=== PATIENT | male | born 1935 | race African-American/Black ===

== ENCOUNTER 2017-05-15 10:05 | Inpatient (IN) | payer OTHER ==
--- NOTE | 2017-05-15 10:44 | PDOC ---
History of Present Illness <Rabia Mishra - Last Filed: 05/15/17 12:13> - General History Source: Patient Exam Limitations: No Limitations - History of Present Illness Initial Comments: 05/15/17 12:00 The patient is a 82 year old male with significant PMH of dementia, not currently seeing a PCP but is on paroxetine and lisinopril who presents to the emergency department with bilateral leg swelling that began approximately 3-4 weeks ago and shortness of breath. The patient describes the bilateral leg swelling as progressively worsening, now making it difficult for him to ambulate. The patient states he is ambulating with a cane. The patient denies dyspnea on exertion and orthopnea. The patient denies any cardiac history, CAD, or CHF but it is unclear if he has had any cardiac evaluation as he is not currently being seen by a PCP. Of note, the patient is also expressing paranoia about living [facility] his [facility] facility. The patient denies chest pain, dyspnea, orthopnea, headache and dizziness. Denies fever, chills, nausea, vomit, diarrhea and constipation. Denies dysuria, frequency, urgency and hematuria. Allergies: NKA Past surgical history: None reported. Social history: No reported alcohol, drug or cigarette drug use. <Amelia Vo - Last Filed: 05/15/17 12:16> - General Chief Complaint: Edema Stated Complaint: BOTH LEG PAIN Time Seen by Provider: 05/15/17 10:44 Past History - Past Medical History COPD: No Dementia: Yes (? dementia) HTN: Yes Hypercholesterolemia: Yes - Surgical History Abdominal Surgery: Yes (colon resection) - Suicide/Smoking/Psychosocial Hx Smoking History: Never smoked Have you smoked in the past 12 months: No Information on smoking cessation initiated: No Hx Alcohol Use: No Drug/Substance Use Hx: No Substance Use Type: None <Rabia Mishra - Last Filed: 05/15/17 12:13> <Amelia Vo - Last Filed: 05/15/17 12:16> - Past Medical History Allergies/Adverse Reactions: Allergies Allergy/AdvReac Type Severity Reaction Status Date / Time No Known Allergies Allergy Verified 05/15/17 10:12 Home Medications: Ambulatory Orders Lisinopril [Prinivil -] 40 mg PO DAILY 02/26/18 Paroxetine HCl [Paxil] 20 mg PO DAILY 05/15/17 Review of Systems - Review of Systems Able to Perform ROS?: Yes Comments:: 05/15/17 12:00 GENERAL/CONSTITUTIONAL: No fever or chills. No weakness. HEAD, EYES, EARS, NOSE AND THROAT: No change in vision. No ear pain or discharge. No sore throat. CARDIOVASCULAR: No chest pain or shortness of breath. RESPIRATORY: (+) SOB. No cough, wheezing, or hemoptysis. GASTROINTESTINAL: No nausea, vomiting, diarrhea or constipation. GENITOURINARY: No dysuria, frequency, or change in urination. MUSCULOSKELETAL: (+) Bilateral leg swelling. No joint or muscle pain. No neck or back pain. SKIN: No rash NEUROLOGIC: No headache, vertigo, loss of consciousness, or change in strength/ sensation. ENDOCRINE: No increased thirst. No abnormal weight change. HEMATOLOGIC/LYMPHATIC: No anemia, easy bleeding, or history of blood clots. ALLERGIC/IMMUNOLOGIC: No hives or skin allergy. <Amelia Vo - Last Filed: 05/15/17 12:16> *Physical Exam - Vital Signs Last Vital Signs Temp Pulse Resp BP Pulse Ox 98.0 F 86 20 176/116 96 05/15/17 10:16 05/15/17 10:16 05/15/17 10:16 05/15/17 10:16 05/15/17 10:31 <Rabia Mishra - Last Filed: 05/15/17 12:13> - Vital Signs Last Vital Signs Temp Pulse Resp BP Pulse Ox 98.0 F 86 20 176/116 96 05/15/17 10:16 05/15/17 10:16 05/15/17 10:16 05/15/17 10:16 05/15/17 10:31 - Physical Exam Comments: 05/15/17 11:59 GENERAL: Awake, alert, and fully oriented, in no acute distress HEAD: No signs of trauma EYES: PERRLA, EOMI, sclera anicteric, conjunctiva clear ENT: Auricles normal inspection, hearing grossly normal, nares patent, oropharynx clear without exudates. Moist mucosa NECK: Normal ROM, supple, no lymphadenopathy, JVD, or masses LUNGS: (+) Tachypnea but in no acute distress. Breath sounds equal, clear to auscultation bilaterally. No wheezes, and no crackles HEART: Regular rate and rhythm, normal S1 and S2, no murmurs, rubs or gallops ABDOMEN: Soft, nontender, normoactive bowel sounds. No guarding, no rebound. No masses EXTREMITIES: (+) 3+ pitting edema to the knees bilaterally. Normal range of motion. No clubbing or cyanosis. No cords, erythema, or tenderness NEUROLOGICAL: Cranial nerves II through XII grossly intact. Normal speech, normal gait SKIN: Warm, Dry, normal turgor, no rashes or lesions noted. To the knee bilat. <Amelia Vo - Last Filed: 05/15/17 12:16> ED Treatment Course - LABORATORY CBC & Chemistry Diagram: 05/15/17 10:55 05/15/17 10:55 - RADIOLOGY Radiology Studies Ordered: Category Date Time Status CHEST PA & LAT [RAD] Stat Radiology 05/15/17 10:24 Ordered <Rabia Mishra - Last Filed: 05/15/17 12:13> - LABORATORY CBC & Chemistry Diagram: 05/15/17 10:55 05/15/17 10:55 - ADDITIONAL ORDERS Additional order review: Laboratory Results 05/15/17 05/15/17 10:55 10:55 Sodium 143 Potassium 3.8 Chloride 109 H Carbon Dioxide 24 Anion Gap 10 BUN 15 Creatinine 1.1 Creat Clearance w eGFR > 60 Random Glucose 98 Calcium 9.8 Total Bilirubin 1.1 H AST 36 ALT 56 Alkaline Phosphatase 68 Creatine Kinase 116 Troponin I 0.13 H B-Natriuretic Peptide 8287.44 H Total Protein 7.4 Albumin 3.9 Urine Color Straw Urine Appearance Clear Urine pH 7.0 Ur Specific [place] 1.010 Urine Protein 1+ H Urine Glucose (UA) Negative Urine Ketones Negative Urine Blood 1+ H Urine Nitrite Negative Urine Bilirubin Negative Urine Urobilinogen Negative Ur Leukocyte Esterase Negative Urine WBC (Auto) None Urine RBC (Auto) <1 Ur Epithelial Cells Rare Urine Mucus Rare 05/15/17 10:55 RBC 4.99 MCV 89.2 MCHC 31.9 L RDW 15.6 MPV 10.3 Neutrophils % 83.0 H Lymphocytes % 10.5 Monocytes % 5.8 Eosinophils % 0.3 Basophils % 0.4 - Medications Given in the ED: ED Medications Discontinued Medications Generic Name Dose Route Start Last Admin Trade Name Yee PRN Reason Stop Dose Admin Aspirin 162 mg 05/15/17 11:42 05/15/17 11:51 Asa - PO 05/15/17 11:43 162 mg ONCE ONE Administration Furosemide 40 mg 05/15/17 11:42 05/15/17 11:51 Lasix Injection - IVPUSH 05/15/17 11:43 40 mg ONCE ONE Administration <Amelia Vo - Last Filed: 05/15/17 12:16> Medical Decision Making - Medical Decision Making 05/15/17 11:51 Pt presents to the ED complaining of a three week history of progressively worsening leg swelling and shortness of breath. Denies chest pain, orthopnea or PND. Patient has no primary care physician, and so has not been recieving reliable medical follow up. Denies history of CHF or CAD, but it is unclear when his last cardiac evaluation was. Labs show mildly elevated troponin and extremely elevated BNP, consistent with CHF. EKG shows no ischemia. Will admit the patient for management of new onset CHF. Will treat with lasix and give ASA. <Rabia Mishra - Last Filed: 05/15/17 12:13> *DC/Admit/Observation/Transfer - Discharge Dispostion Admit: Yes <Rabia Mishra - Last Filed: 05/15/17 12:13> - Attestations Scribe Attestion: 05/15/17 11:59 Documentation prepared by Amelia Vo, acting as medical instrument cable fabricator for Rabia Mishra MD. <Amelia Vo - Last Filed: 05/15/17 12:16> Diagnosis at time of Disposition: CHF (congestive heart failure) Qualifiers: Heart failure type: unspecified Heart failure chronicity: acute Qualified Code( s): I50.9 - Heart failure, unspecified
[2017-05-15 11:08] LABS: BASO % 0.4 % (0-2.0); EOS % 0.3 % (0-4.5); HEMATOCRIT 44.5 % (35.4-49); HEMOGLOBIN 14.2 GM/dL (11.7-16.9); LYMPH % 10.5 % (8-40); MCH 28.4 pg (25.7-33.7); MCHC 31.9 g/dl (32.0-35.9); MEAN CELL VOLUME 89.2 fl (80-96); MEAN PLT VOLUME 10.3 fl (7.5-11.1); MONO % 5.8 % (3.8-10.2); PLATELET COUNT 225 K/MM3 (134-434); RBC 4.99 M/mm3 (4.00-5.60); RDW 15.6 % (11.9-15.9); URINE APPEARANCE CLEAR; URINE BILIRUBIN NEGATIVE (NEGATIVE); URINE BLOOD 1+ (NEGATIVE); URINE COLOR STRAW; URINE GLUCOSE (UA) NEGATIVE (NEGATIVE); URINE KETONE NEGATIVE (NEGATIVE); URINE LEUK ESTERASE NEGATIVE (NEGATIVE); URINE NITRITE NEGATIVE (NEGATIVE); URINE UROBILINOGEN NEGATIVE mg/dL (0.2-1.0)
[2017-05-15 11:31] LABS: ALBUMIN 3.9 g/dl (3.4-5.0); ANION GAP 10 (8-16); BILIRUBIN,TOTAL 1.1 mg/dL (0.2-1.0); BLOOD UREA NITROGEN 15 mg/dL (7-18); CALCIUM 9.8 mg/dL (8.5-10.1); CHLORIDE 109 mmol/L (98-107); CO2 24 mmol/L (21-32); CREATININE 1.1 mg/dL (0.7-1.3); GLUCOSE,RANDOM 98 mg/dL (74-106); POTASSIUM 3.8 mmol/L (3.5-5.1); SGOT/AST 36 U/L (15-37); SGPT/ALT 56 U/L (12-78); SODIUM 143 mmol/L (136-145); TOT PROT 7.4 g/dl (6.4-8.2)
[2017-05-15 11:33] LABS: ALK PHOS 68 U/L (45-117)
[2017-05-15 11:34] LABS: N-TERMINAL BNP 8287.44 pg/ml (5-450)
[2017-05-15 11:42] LABS: URINE PROTEIN 1+ (NEGATIVE)
[2017-05-15] MEDS ORDERED: ASPIRIN 81 MG CHEWABLE TABLETS PO ONE (11:42)
[2017-05-15] MEDS ORDERED: FUROSEMIDE 40 MG/4 ML INJECTABLE VIAL IVPUSH ONE (11:42)
[2017-05-15] MEDS ORDERED: ASPIRIN 81 MG CHEWABLE TABLETS ONE (11:45)
[2017-05-15] MEDS ORDERED: FUROSEMIDE 40 MG/4 ML INJECTABLE VIAL ONE ×2 (11:45→12:58)
[2017-05-15 11:47] LABS: EPI CELLS RARE /HPF (FEW); URINE MUCUS RARE
--- NOTE | 2017-05-15 12:14 | CON.CARD ---
Consult Consult Specialty:: Cardiology Referred by:: Emergency Dept. Reason for Consultation:: CHF - History of Present Illness Chief Complaint: Dyspnea and LE edema History of Present Illness: The patient is a 82 year old male with significant PMH of dementia, HTN/HCVD not currently seeing a PCP but is on paroxetine and lisinopril who presents to the emergency department with progressive bilateral leg swelling that began approximately 3-4 weeks ago and shortness of breath. The patient describes the bilateral leg swelling as progressively worsening, now making it difficult for him to ambulate. The patient denies dyspnea on exertion and orthopnea. The patient denies any cardiac history, CAD, or CHF but it is unclear if he has had any cardiac evaluation as he is not currently being seen by a PCP. The patient is expressing paranoia about living on his senior center facility. The patient denies chest pain, dyspnea, orthopnea, headache, palpitations and dizziness or true syncope Denies fever, chills, nausea, vomit, diarrhea and constipation. Denies dysuria, frequency, urgency and hematuria. Allergies: NKA Past surgical history: None reported. Social history: No reported alcohol, drug or cigarette drug use. - History Source History Provided By: Medical Record Limitations to Obtaining History: Dementia - Alcohol/Substance Use Hx Alcohol Use: No - Smoking History Smoking history: Never smoked Have you smoked in the past 12 months: No Home Medications - Allergies Allergies/Adverse Reactions: Allergies Allergy/AdvReac Type Severity Reaction Status Date / Time No Known Allergies Allergy Verified 05/15/17 10:12 - Home Medications Home Medications: Ambulatory Orders Lisinopril [Prinivil -] 40 mg PO DAILY 05/15/17 Paroxetine HCl [Paxil] 20 mg PO DAILY 05/15/17 Review of Systems - Review of Systems Cardiovascular: reports: Edema, Shortness of Breath Vital Signs: Vital Signs Temperature 98.0 F 05/15/17 10:16 Pulse Rate 86 05/15/17 10:16 Respiratory Rate 20 05/15/17 10:16 Blood Pressure 176/116 05/15/17 10:16 O2 Sat by Pulse Oximetry (%) 96 05/15/17 10:31 Constitutional: Yes: No Distress, Calm Neck: Yes: Supple Respiratory: Yes: Regular, Diminished Gastrointestinal: Yes: Normal Bowel Sounds, Soft, Abdomen, Obese Cardiovascular: Yes: Regular Rate and Rhythm JVD: No Carotid Bruit: No Heart Sounds: Yes: S1, S2 Murmur: Yes: Systolic Murmur, Grade 1 Edema: Yes Edema: LLE: 2+, RLE: 2+ - Other Data Labs, Other Data: CBC, BMP 05/15/17 10:55 05/15/17 10:55 Troponin, BNP 05/15/17 10:55 Troponin I 0.13 H B-Natriuretic Peptide 8287.44 H Troponin, BNP 05/15/17 10:55 Troponin I 0.13 H B-Natriuretic Peptide 8287.44 H NSR @ 88 LAD, LVH, PVC Echo: Pending Imaging - Results Chest X-ray: Report Reviewed (CHF) Problem List - Problems (1) Hypertensive cardiomyopathy Code(s): I11.9 - HYPERTENSIVE HEART DISEASE WITHOUT HEART FAILURE; I43 - CARDIOMYOPATHY IN DISEASES CLASSIFIED ELSEWHERE Qualifiers: Heart failure presence: with heart failure Qualified Code(s): I11.0 - Hypertensive heart disease with heart failure; I43 - Cardiomyopathy in diseases classified elsewhere; I43 - Cardiomyopathy in diseases classified elsewhere; I43 - Cardiomyopathy in diseases classified elsewhere; I43 - Cardiomyopathy in diseases classified elsewhere (2) CHF (congestive heart failure) Code(s): I50.9 - HEART FAILURE, UNSPECIFIED Qualifiers: Heart failure type: unspecified Heart failure chronicity: acute on chronic Qualified Code(s): I50.9 - Heart failure, unspecified (3) Subendocardial ischemia Code(s): I24.8 - OTHER FORMS OF ACUTE ISCHEMIC HEART DISEASE (4) Premature ventricular contraction Code(s): I49.3 - VENTRICULAR PREMATURE DEPOLARIZATION Assessment/Plan 1. Acute on chronic LV failure in context of elevated BP 2. Demand ischemia 3. HTN/HCVD 4. PVC P:1. IV diuresis with monitor diuretic response, renal fxn and electrolytes 2. ASA 81 qd, lisinopril, carvedilol 3. Echo to assess ventricular and valve fxn 4. Trend trops to document peak, check TSH, lipid panel and Ha1c 5. Thank you for consultative opportunity
[2017-05-15] MEDS ORDERED: CARVEDILOL 3.125 MG TABLET (FP) ONE (12:44)
[2017-05-15] MEDS ORDERED: LISINOPRIL 20 MG TABLET (FP) ONE (12:45)
[2017-05-15] MEDS: LISINOPRIL 20 MG TABLET (FP) PO SCH (12:57)
[2017-05-15] MEDS: CARVEDILOL 6.25 MG TABLET (FP) PO SCH ×2 (12:57→21:45)
[2017-05-15] MEDS: FUROSEMIDE 40 MG/4 ML INJECTABLE VIAL IVPUSH SCH (13:59)
[2017-05-15] MEDS ORDERED: ACETAMINOPHEN 325 MG TABLET (FP) ONE (14:44)
[2017-05-15] MEDS ORDERED: ACETAMINOPHEN 325 MG TABLET (FP) PO ONE (14:48)
[2017-05-15 17:24] VITALS: BMI 29.5
--- NOTE | 2017-05-15 18:59 | HP ---
Admitting History and Physical - Primary Care Physician PCP: Abdullahi Bowling - Admission History of Present Illness: 82 year old male with significant PMH of dementia, not currently seeing a PCP but is on paroxetine and lisinopril who presents to the emergency department with bilateral leg swelling that began approximately 3-4 weeks ago and shortness of breath. The patient describes the bilateral leg swelling as progressively worsening, now making it difficult for him to ambulate. The patient states he is ambulating with a cane. The patient denies dyspnea on exertion and orthopnea. The patient denies any cardiac history, CAD, or CHF but it is unclear if he has had any cardiac evaluation as he is not currently being seen by a PCP. Of note, the patient is also expressing paranoia about living on his senior center facility. - Smoking History Smoking history: Never smoked Have you smoked in the past 12 months: No - Alcohol/Substance Use Hx Alcohol Use: No Home Medications - Allergies Allergies/Adverse Reactions: Allergies Allergy/AdvReac Type Severity Reaction Status Date / Time No Known Allergies Allergy Verified 05/15/17 10:12 - Home Medications Home Medications: Ambulatory Orders Lisinopril [Prinivil -] 40 mg PO DAILY 05/15/17 Paroxetine HCl [Paxil] 20 mg PO DAILY 05/15/17 Physical Examination Vital Signs: Vital Signs Temperature 97.9 F 05/15/17 17:44 Pulse Rate 83 05/15/17 17:44 Respiratory Rate 20 05/15/17 17:44 Blood Pressure 159/92 05/15/17 17:44 O2 Sat by Pulse Oximetry (%) 94 L 05/15/17 18:43 Constitutional: Yes: Calm HENT: Yes: Atraumatic Neck: Yes: Supple Cardiovascular: Yes: Regular Rate and Rhythm Respiratory: Yes: Rhonchi Gastrointestinal: Yes: Normal Bowel Sounds Extremities: Yes: WNL Edema: Yes Edema: LLE: 1+, RLE: 1+ Peripheral Pulses WNL: Yes Neurological: Yes: Alert, Oriented Labs: CBC, BMP 05/15/17 10:55 05/15/17 10:55 Problem List - Problems (1) CHF (congestive heart failure) Assessment/Plan: on iv lasix cardiology has seen pt Code(s): I50.9 - HEART FAILURE, UNSPECIFIED Qualifiers: Heart failure type: unspecified Heart failure chronicity: acute on chronic Qualified Code(s): I50.9 - Heart failure, unspecified (2) Hypertensive cardiomyopathy Assessment/Plan: on lisinopril Code(s): I11.9 - HYPERTENSIVE HEART DISEASE WITHOUT HEART FAILURE; I43 - CARDIOMYOPATHY IN DISEASES CLASSIFIED ELSEWHERE Qualifiers: Heart failure presence: with heart failure Qualified Code(s): I11.0 - Hypertensive heart disease with heart failure; I43 - Cardiomyopathy in diseases classified elsewhere; I43 - Cardiomyopathy in diseases classified elsewhere; I43 - Cardiomyopathy in diseases classified elsewhere; I43 - Cardiomyopathy in diseases classified elsewhere (3) Subendocardial ischemia Assessment/Plan: will follow troponins Code(s): I24.8 - OTHER FORMS OF ACUTE ISCHEMIC HEART DISEASE (4) Elevated WBC count Assessment/Plan: start emperic abx to cover for infection id consult Code(s): D72.829 - ELEVATED WHITE BLOOD CELL COUNT, UNSPECIFIED Assessment/Plan Laboratory Results - last 24 hr 05/15/17 05/15/17 05/15/17 10:55 10:55 10:55 WBC 12.0 H RBC 4.99 Hgb 14.2 Hct 44.5 MCV 89.2 MCH 28.4 MCHC 31.9 L RDW 15.6 Plt Count 225 MPV 10.3 Neutrophils % 83.0 H Lymphocytes % 10.5 Monocytes % 5.8 Eosinophils % 0.3 Basophils % 0.4 Sodium 143 Potassium 3.8 Chloride 109 H Carbon Dioxide 24 Anion Gap 10 BUN 15 Creatinine 1.1 Creat Clearance w eGFR > 60 Random Glucose 98 Calcium 9.8 Total Bilirubin 1.1 H AST 36 ALT 56 Alkaline Phosphatase 68 Creatine Kinase 116 Troponin I 0.13 H B-Natriuretic Peptide 8287.44 H Total Protein 7.4 Albumin 3.9 Urine Color Straw Urine Appearance Clear Urine pH 7.0 Ur Specific [place] 1.010 Urine Protein 1+ H Urine Glucose (UA) Negative Urine Ketones Negative Urine Blood 1+ H Urine Nitrite Negative Urine Bilirubin Negative Urine Urobilinogen Negative Ur Leukocyte Esterase Negative Urine WBC (Auto) None Urine RBC (Auto) <1 Ur Epithelial Cells Rare Urine Mucus Rare Active Medications Generic Name Dose Route Start Last Admin Trade Name Freq PRN Reason Stop Dose Admin Aspirin 81 mg 05/16/17 10:00 Asa - PO DAILY ADRIA Carvedilol 6.25 mg 05/15/17 12:30 05/15/17 12:57 Coreg - PO 6.25 mg BID ADRIA Administration Furosemide 40 mg 05/15/17 14:00 05/15/17 13:59 Lasix Injection - IVPUSH 40 mg BIDLASIX ADRIA Administration Lisinopril 20 mg 05/15/17 12:30 05/15/17 12:57 Prinivil PO 20 mg DAILY ADRIA Administration
[2017-05-15] MEDS: HEPARIN NA (PORCINE) 5,000 UNITS/ML 1ML VIAL SQ SCH (21:45)
[2017-05-16 06:15] LABS: BASO % 0.8 % (0-2.0); EOS % 1.2 % (0-4.5); HEMATOCRIT 41.3 % (35.4-49); HEMOGLOBIN 13.4 GM/dL (11.7-16.9); LYMPH % 19.8 % (8-40); MCH 28.8 pg (25.7-33.7); MCHC 32.4 g/dl (32.0-35.9); MEAN CELL VOLUME 88.8 fl (80-96); MEAN PLT VOLUME 10.1 fl (7.5-11.1); MONO % 8.3 % (3.8-10.2); NEUT % 69.9 % (42.8-82.8); PLATELET COUNT 193 K/MM3 (134-434); RBC 4.65 M/mm3 (4.00-5.60); RDW 15.4 % (11.9-15.9); WHITE BLOOD COUNT 7.7 K/mm3 (4.0-10.0)
[2017-05-16 06:41] LABS: ANION GAP 10 (8-16); BLOOD UREA NITROGEN 16 mg/dL (7-18); CALCIUM 8.7 mg/dL (8.5-10.1); CHLORIDE 106 mmol/L (98-107); CO2 29 mmol/L (21-32); GLUCOSE,RANDOM 81 mg/dL (74-106); MAGNESIUM 1.7 mg/dL (1.8-2.4); POTASSIUM 3.1 mmol/L (3.5-5.1); SODIUM 145 mmol/L (136-145)
[2017-05-16] MEDS: FUROSEMIDE 40 MG/4 ML INJECTABLE VIAL IVPUSH SCH ×2 (07:32→13:54)
[2017-05-16] MEDS: CARVEDILOL 6.25 MG TABLET (FP) PO SCH ×2 (09:26→22:08)
[2017-05-16] MEDS: HEPARIN NA (PORCINE) 5,000 UNITS/ML 1ML VIAL SQ SCH ×2 (09:27→22:08)
[2017-05-16] MEDS: ASPIRIN 81 MG CHEWABLE TABLETS PO SCH (09:27)
[2017-05-16] MEDS: LISINOPRIL 20 MG TABLET (FP) PO SCH (09:27)
[2017-05-16] MEDS ORDERED: CEFTRIAXONE 1 G/50 ML PREMIX 50 ML IVPB SCH (10:00)
--- NOTE | 2017-05-16 11:38 | EKG ---
Test Reason : Blood Pressure : / mmHG Vent. Rate : 088 BPM Atrial Rate : 088 BPM P-R Int : 000 ms QRS Dur : 120 ms QT Int : 384 ms P-R-T Axes : 064 -63 059 degrees QTc Int : 464 ms SINUS RHYTHM WITH 1ST DEGREE A-V BLOCK WITH PREMATURE ATRIAL COMPLEXES WITH ABERRANT CONDUCTION LEFT AXIS DEVIATION ANTERIOR INFARCT , AGE UNDETERMINED ABNORMAL ECG NO PREVIOUS ECGS AVAILABLE Confirmed by MD Ermias, See ([id number]) on 05/16/2017 11:37:41 AM Referred By: Confirmed By:See Monson MD
--- NOTE | 2017-05-16 13:33 | PN ---
Progress Note (short form) - Note Progress Note: Chief Complaint: Events noted, notes reviewed, reports persistent dyspnea and bilateral lower extremity edema although severity has decreased, denies any chest pain History of Present Illness: Seen and examined on telemetry. Events noted, notes reviewed, reports persistent dyspnea and bilateral lower extremity edema although severity has decreased, denies any chest pain Patient keeps on expressing paranoia about living in his senior center facility (he stated that "they are poisoning the residents") Echocardiography performed yesterday revealed mild to moderately reduced left ventricular systolic function with concentric left ventricular hypertrophy,mild mitral valve regurgitation, mild tricuspid valve regurgitation with RVSP of 34.2 mmHg Medications: Current Medications Aspirin (Asa -) 81 mg PO DAILY [facility] Last Admin: 05/16/17 09:27 Dose: 81 mg Carvedilol (Coreg -) 6.25 mg PO BID [facility] Last Admin: 05/16/17 09:26 Dose: 6.25 mg Furosemide (Lasix Injection -) 40 mg IVPUSH BIDLASIX [facility] Last Admin: 05/16/17 13:54 Dose: 40 mg Heparin Sodium (Porcine) (Heparin -) 5,000 unit SQ BID [facility] Last Admin: 05/16/17 09:27 Dose: 5,000 unit Lisinopril (Prinivil) 20 mg PO DAILY [facility] Last Admin: 05/16/17 09:27 Dose: 20 mg Review of Systems Cardiovascular: As noted above Respiratory: denies: denies: Cough or Sputum Production Gastrointestinal: denies: Nausea, Vomiting, Diarrhea, Constipation or Abdominal Discomfort Musculoskeletal: No Symptoms Reported Endocrine: No Symptoms Reported Vital Signs: Last Vital Signs Temp Pulse Resp BP Pulse Ox 98.9 F 79 20 173/89 99 05/16/17 13:18 05/16/17 08:02 05/16/17 08:05 05/16/17 08:02 05/16/17 08:05 Intake & Output 05/13/17 05/14/17 05/15/17 05/16/17 23:59 23:59 23:59 23:59 Output Total 2900 3200 Balance -2900 -3200 Weight 224 lb 246 lb 12.8 oz Constitutional: No Distress, Calm Neck: Supple Negative JVD No Bruit Cardiovascular: S1 S2 Regular Rate and Rhythm Respiratory: Diminished at the Bases Bilaterally Gastrointestinal: Soft Benign Normal Bowel Sounds Ext: 1-2+ Bilateral Edema Labs: CBC, BMP 05/16/17 05:35 05/16/17 05:35 Hepatic Panel Total Bilirubin 1.1 mg/dL (0.2-1.0) H 05/15/17 10:55 AST 36 U/L (15-37) 05/15/17 10:55 ALT 56 U/L (12-78) 05/15/17 10:55 Alkaline Phosphatase 68 U/L (45-117) 05/15/17 10:55 Albumin 3.9 g/dl (3.4-5.0) 05/15/17 10:55 Assessment/Plan ASSESSMENT: 1. 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 Coronary artery disease angina pectoris with evidence of demand ischemic injury related to the above-noted presentation 3. HTN/HCVD, uncontrolled 4. PVC's 5. Hypokalemia PLAN: 1. Continue IV Lasix with close monitoring of renal function and electrolytes 2. Continue ASA 3. Continue Lisinopril and titrate dosage as tolerated and as needed 4. Continue Carvedilol and titrate dosage as tolerated and as needed 5. Pharmacologic myocardial perfusion imaging study is recommended prior to discharge for evaluation of ischemic burden considering the above-noted clinical presentation with congestive heart failure and demand ischemic injury Laura Alves MD
--- NOTE | 2017-05-16 14:42 | CON.ID ---
Consult Consult Specialty:: infectious diseases Reason for Consultation:: cellulitis of the leg - History of Present Illness History of Present Illness: 82 year old male with significant PMH of dementia, not currently seeing a PCP but is on paroxetine and lisinopril who presents to the emergency department with bilateral leg swelling that began approximately 3-4 weeks ago and shortness of breath. The patient describes the bilateral leg swelling as progressively worsening, now making it difficult for him to ambulate. The patient states he is ambulating with a cane. The patient denies dyspnea on exertion and orthopnea. The patient denies any cardiac history, CAD, or CHF currently the patient mentions that he is feeling better but still does not feel he is at par he also mentions that in the old place somebody is going to harm him - History Source History Provided By: Patient, Medical Record Limitations to Obtaining History: Poor Historian - Alcohol/Substance Use Hx Alcohol Use: No - Smoking History Smoking history: Never smoked Have you smoked in the past 12 months: No Home Medications - Allergies Allergies/Adverse Reactions: Allergies Allergy/AdvReac Type Severity Reaction Status Date / Time No Known Allergies Allergy Verified 05/15/17 10:12 - Home Medications Home Medications: Ambulatory Orders Lisinopril [Prinivil -] 40 mg PO DAILY 05/15/17 Paroxetine HCl [Paxil] 20 mg PO DAILY 05/15/17 Review of Systems - Review of Systems Constitutional: reports: No Symptoms Eyes: reports: No Symptoms HENT: reports: No Symptoms Neck: reports: No Symptoms Cardiovascular: reports: Shortness of Breath Respiratory: reports: SOB, SOB on Exertion Gastrointestinal: reports: No Symptoms Genitourinary: reports: No Symptoms Musculoskeletal: reports: Muscle Pain, Muscle Weakness, Other Integumentary: reports: Erythema, Other Neurological: reports: No Symptoms Endocrine: reports: No Symptoms Hematology/Lymphatic: reports: No Symptoms Psychiatric: reports: Anxiety, Other Physical Exam Vital Signs: Vital Signs Temperature 98.9 F 05/16/17 13:18 Pulse Rate 79 05/16/17 08:02 Respiratory Rate 20 05/16/17 08:05 Blood Pressure 173/89 05/16/17 08:02 O2 Sat by Pulse Oximetry (%) 99 05/16/17 08:05 Constitutional: Yes: Well Nourished, No Distress, Calm Eyes: Yes: Conjunctiva Clear HENT: Yes: Atraumatic, Normocephalic Neck: Yes: Supple, Trachea Midline Cardiovascular: Yes: Regular Rate and Rhythm Respiratory: Yes: Regular, CTA Bilaterally Gastrointestinal: Yes: Normal Bowel Sounds, Soft Renal/: Yes: [place] Present. No: CVA Tenderness - Left, CVA Tenderness - Right Musculoskeletal: Yes: Muscle Pain (bilateral legs) Extremities: Yes: Erythema (mild both legs) Edema: LLE: Trace, RLE: Trace Integumentary: Yes: Erythema (bilateral both legs) Neurological: Yes: Alert, Oriented Psychiatric: Yes: Alert, Other Labs: CBC, BMP 05/16/17 05:35 05/16/17 05:35 Imaging - Results Chest X-ray: Report Reviewed, Image Reviewed Assessment/Plan - Problems (1) CHF (congestive heart failure) Code(s): I50.9 - HEART FAILURE, UNSPECIFIED Qualifiers: Heart failure type: unspecified Heart failure chronicity: acute on chronic Qualified Code(s): I50.9 - Heart failure, unspecified (2) Hypertensive cardiomyopathy Code(s): I11.9 - HYPERTENSIVE HEART DISEASE WITHOUT HEART FAILURE; I43 - CARDIOMYOPATHY IN DISEASES CLASSIFIED ELSEWHERE Qualifiers: Heart failure presence: with heart failure Qualified Code(s): I11.0 - Hypertensive heart disease with heart failure; I43 - Cardiomyopathy in diseases classified elsewhere; I43 - Cardiomyopathy in diseases classified elsewhere; I43 - Cardiomyopathy in diseases classified elsewhere; I43 - Cardiomyopathy in diseases classified elsewhere (3) Subendocardial ischemia Code(s): I24.8 - OTHER FORMS OF ACUTE ISCHEMIC HEART DISEASE (4) Elevated WBC count Code(s): D72.829 - ELEVATED WHITE BLOOD CELL COUNT, UNSPECIFIED 5 cellulitis of the legs patients cellulitis of the legs s pretty mild has some tenderness plan will start on clinda rest continue as per cardio monitor urine output rest as per primary team
[2017-05-16] MEDS: CLINDAMYCIN HCL 150 MG CAPSULE (FP) PO SCH (18:34)
--- NOTE | 2017-05-16 18:38 | PN ---
Progress Note, Physician - Current Medication List Current Medications: Active Medications Aspirin (Asa -) 81 mg PO DAILY [facility] Last Admin: 05/16/17 09:27 Dose: 81 mg Carvedilol (Coreg -) 6.25 mg PO BID [facility] Last Admin: 05/16/17 09:26 Dose: 6.25 mg Clindamycin HCl (Cleocin -) 300 mg PO Q6HPO [facility] Last Admin: 05/16/17 18:34 Dose: 300 mg Furosemide (Lasix Injection -) 40 mg IVPUSH BIDLASIX [facility] Last Admin: 05/16/17 13:54 Dose: 40 mg Heparin Sodium (Porcine) (Heparin -) 5,000 unit SQ BID [facility] Last Admin: 05/16/17 09:27 Dose: 5,000 unit Lisinopril (Prinivil) 20 mg PO DAILY [facility] Last Admin: 05/16/17 09:27 Dose: 20 mg - Objective Vital Signs: Vital Signs Temperature 98.9 F 05/16/17 13:18 Pulse Rate 85 05/16/17 16:00 Respiratory Rate 20 05/16/17 16:00 Blood Pressure 146/77 05/16/17 16:00 O2 Sat by Pulse Oximetry (%) 99 05/16/17 08:05 Constitutional: Yes: Anxious HENT: Yes: Atraumatic Neck: Yes: Supple Cardiovascular: Yes: Regular Rate and Rhythm Respiratory: Yes: CTA Bilaterally, Rhonchi Gastrointestinal: Yes: Normal Bowel Sounds Extremities: Yes: WNL Edema: Yes Edema: LLE: 1+, RLE: 1+ Neurological: Yes: Alert Labs: CBC, BMP 05/16/17 05:35 05/16/17 05:35 Problem List - Problems (1) CHF (congestive heart failure) Assessment/Plan: on iv lasix doing better Code(s): I50.9 - HEART FAILURE, UNSPECIFIED Qualifiers: Heart failure type: unspecified Heart failure chronicity: acute on chronic Qualified Code(s): I50.9 - Heart failure, unspecified (2) Hypertensive cardiomyopathy Assessment/Plan: on lisinopril Code(s): I11.9 - HYPERTENSIVE HEART DISEASE WITHOUT HEART FAILURE; I43 - CARDIOMYOPATHY IN DISEASES CLASSIFIED ELSEWHERE Qualifiers: Heart failure presence: with heart failure Qualified Code(s): I11.0 - Hypertensive heart disease with heart failure; I43 - Cardiomyopathy in diseases classified elsewhere; I43 - Cardiomyopathy in diseases classified elsewhere; I43 - Cardiomyopathy in diseases classified elsewhere; I43 - Cardiomyopathy in diseases classified elsewhere (3) Subendocardial ischemia Assessment/Plan: will follow troponins Code(s): I24.8 - OTHER FORMS OF ACUTE ISCHEMIC HEART DISEASE (4) Elevated WBC count Assessment/Plan: start emperic abx to cover for infection id consult Code(s): D72.829 - ELEVATED WHITE BLOOD CELL COUNT, UNSPECIFIED
[2017-05-16 20:35] LABS: ALBUMIN 3.5 g/dl (3.4-5.0); ANION GAP 5 (8-16); BLOOD UREA NITROGEN 17 mg/dL (7-18); CALCIUM 8.9 mg/dL (8.5-10.1); CHLORIDE 104 mmol/L (98-107); CO2 34 mmol/L (21-32); CREATININE 1.4 mg/dL (0.7-1.3); GLUCOSE,RANDOM 123 mg/dL (74-106); POTASSIUM 3.1 mmol/L (3.5-5.1); SGOT/AST 25 U/L (15-37); SGPT/ALT 38 U/L (12-78); SODIUM 143 mmol/L (136-145)
[2017-05-16 20:39] LABS: ALK PHOS 65 U/L (45-117); TOT PROT 6.5 g/dl (6.4-8.2)
[2017-05-17] MEDS: CLINDAMYCIN HCL 150 MG CAPSULE (FP) PO SCH ×4 (00:15→18:12)
[2017-05-17] MEDS: FUROSEMIDE 40 MG/4 ML INJECTABLE VIAL IVPUSH SCH (06:47)
[2017-05-17] MEDS: MAGNESIUM OXIDE 400 MG TABLET (FP) PO SCH (06:48)
[2017-05-17] MEDS: POTASSIUM CHLORIDE TABS 20 MEQ TABLET.ER (FP) PO SCH ×2 (06:48→22:12)
[2017-05-17] MEDS: CARVEDILOL 6.25 MG TABLET (FP) PO SCH (09:07)
[2017-05-17] MEDS: LISINOPRIL 20 MG TABLET (FP) PO SCH ×2 (09:07→22:14)
[2017-05-17] MEDS: ASPIRIN 81 MG CHEWABLE TABLETS PO SCH (09:07)
[2017-05-17] MEDS: HEPARIN NA (PORCINE) 5,000 UNITS/ML 1ML VIAL SQ SCH ×2 (09:07→22:12)
--- NOTE | 2017-05-17 11:23 | PN ---
Progress Note, Physician History of Present Illness: He reports improving dyspnea and bilateral lower extremity edema with diuresis, denies any chest pain. - Current Medication List Current Medications: Active Medications Aspirin (Asa -) 81 mg PO DAILY [facility] Last Admin: 05/17/17 09:07 Dose: 81 mg Carvedilol (Coreg -) 6.25 mg PO BID [facility] Last Admin: 05/17/17 09:07 Dose: 6.25 mg Clindamycin HCl (Cleocin -) 300 mg PO Q6HPO [facility] Last Admin: 05/17/17 05:46 Dose: 300 mg Furosemide (Lasix Injection -) 40 mg IVPUSH BIDLASIX [facility] Last Admin: 05/17/17 06:47 Dose: 40 mg Heparin Sodium (Porcine) (Heparin -) 5,000 unit SQ BID [facility] Last Admin: 05/17/17 09:07 Dose: 5,000 unit Lisinopril (Prinivil) 20 mg PO DAILY [facility] Last Admin: 05/17/17 09:07 Dose: 20 mg Magnesium Oxide (Mag-Ox -) 400 mg PO DAILY [facility] Last Admin: 05/17/17 06:48 Dose: 400 mg Potassium Chloride (K-Dur -) 40 meq PO BID [facility] Last Admin: 05/17/17 06:48 Dose: 40 meq - Objective Vital Signs: Vital Signs Temperature 98.3 F 05/17/17 10:00 Pulse Rate 84 05/17/17 10:00 Respiratory Rate 20 05/17/17 10:00 Blood Pressure 161/72 05/17/17 10:00 O2 Sat by Pulse Oximetry (%) 95 05/17/17 09:00 Constitutional: Yes: No Distress, Calm, Thin Neck: Yes: Supple Cardiovascular: Yes: Regular Rate and Rhythm Respiratory: Yes: Regular, Diminished Gastrointestinal: Yes: Normal Bowel Sounds, Soft Edema: No Labs: CBC, BMP 05/16/17 05:35 05/16/17 19:25 - ....Imaging EKG: Report Reviewed (Tele: SR isaiah SALMERON) Problem List - Problems (1) Hypertensive cardiomyopathy Code(s): I11.9 - HYPERTENSIVE HEART DISEASE WITHOUT HEART FAILURE; I43 - CARDIOMYOPATHY IN DISEASES CLASSIFIED ELSEWHERE Qualifiers: Heart failure presence: with heart failure Qualified Code(s): I11.0 - Hypertensive heart disease with heart failure; I43 - Cardiomyopathy in diseases classified elsewhere; I43 - Cardiomyopathy in diseases classified elsewhere; I43 - Cardiomyopathy in diseases classified elsewhere; I43 - Cardiomyopathy in diseases classified elsewhere (2) CHF (congestive heart failure) Code(s): I50.9 - HEART FAILURE, UNSPECIFIED Qualifiers: Heart failure type: unspecified Heart failure chronicity: acute on chronic Qualified Code(s): I50.9 - Heart failure, unspecified (3) Subendocardial ischemia Code(s): I24.8 - OTHER FORMS OF ACUTE ISCHEMIC HEART DISEASE (4) Premature ventricular contraction Code(s): I49.3 - VENTRICULAR PREMATURE DEPOLARIZATION Assessment/Plan 05/15/2017 Echocardiography: Mild to moderately reduced left ventricular systolic function with concentric left ventricular hypertrophy,mild mitral valve regurgitation, mild tricuspid valve regurgitation with RVSP of 34.2 mmH 1. Acute on chronic LV systolic failure in context of elevated BP resolving 2. Demand ischemia 3. HTN/HCVD 4. PVC 5. PRANEETH with hypokalemia P:1. Decrease IV diuresis with monitor diuretic response, renal fxn and electrolytes and replete K as needed 2. ASA 81 qd, increase lisinopril 20 bid and carvedilol 12.5 bid as hemodynamics tolerate, eventual aldosterone-antagonist 3. Trops have peaked, TSH, lipid panel and Ha1c reviewed
[2017-05-17] MEDS ORDERED: CARVEDILOL 6.25 MG TABLET (FP) PO ONE (11:26)
[2017-05-17] MEDS ORDERED: PT OWN MED DRAWER 7, Y5N ONE ×2 (12:27→16:57)
--- NOTE | 2017-05-17 16:00 | PN ---
Progress Note, Physician History of Present Illness: doing well legs looking better still does not feel completely well improving - Current Medication List Current Medications: Active Medications Aspirin (Asa -) 81 mg PO DAILY [facility] BY [facility] Last Admin: 05/17/17 09:07 Dose: 81 mg Carvedilol (Coreg -) 12.5 mg PO BID [facility] Clindamycin HCl (Cleocin -) 300 mg PO Q6HPO [facility] BY [facility] Last Admin: 05/17/17 12:27 Dose: 300 mg Furosemide (Lasix Injection -) 40 mg IVPUSH DAILY [facility] BY [facility] Heparin Sodium (Porcine) (Heparin -) 5,000 unit SQ BID [facility] BY [facility] Last Admin: 05/17/17 09:07 Dose: 5,000 unit Lisinopril (Prinivil) 20 mg PO BID [facility] BY [facility] Magnesium Oxide (Mag-Ox -) 400 mg PO DAILY [facility] BY [facility] Last Admin: 05/17/17 06:48 Dose: 400 mg Potassium Chloride (K-Dur -) 40 meq PO BID [facility] BY [facility] Last Admin: 05/17/17 06:48 Dose: 40 meq - Objective Vital Signs: Vital Signs Temperature 98.6 F 05/17/17 14:00 Pulse Rate 82 05/17/17 14:00 Respiratory Rate 20 05/17/17 14:00 Blood Pressure 127/69 05/17/17 14:00 O2 Sat by Pulse Oximetry (%) 95 05/17/17 09:00 Constitutional: Yes: No Distress, Calm HENT: Yes: Atraumatic Cardiovascular: Yes: Regular Rate and Rhythm Respiratory: Yes: Regular, Poor Air Entry (at the bases) Gastrointestinal: Yes: Normal Bowel Sounds, Soft Genitourinary: Yes: [place] Present Musculoskeletal: Yes: Other Extremities: Yes: Other (edema improving,erythema improving) Edema: LLE: 1+, RLE: 1+ Integumentary: Yes: Erythema (and swelling improving) Neurological: Yes: Alert, Oriented Psychiatric: Yes: Alert Labs: CBC, BMP 05/16/17 05:35 05/16/17 19:25 Assessment/Plan - Problems (1) CHF (congestive heart failure) Code(s): I50.9 - HEART FAILURE, UNSPECIFIED Qualifiers: Heart failure type: unspecified Heart failure chronicity: acute on chronic Qualified Code(s): I50.9 - Heart failure, unspecified (2) Hypertensive cardiomyopathy Code(s): I11.9 - HYPERTENSIVE HEART DISEASE WITHOUT HEART FAILURE; I43 - CARDIOMYOPATHY IN DISEASES CLASSIFIED ELSEWHERE Qualifiers: Heart failure presence: with heart failure Qualified Code(s): I11.0 - Hypertensive heart disease with heart failure; I43 - Cardiomyopathy in diseases classified elsewhere; I43 - Cardiomyopathy in diseases classified elsewhere; I43 - Cardiomyopathy in diseases classified elsewhere; I43 - Cardiomyopathy in diseases classified elsewhere (3) Subendocardial ischemia Code(s): I24.8 - OTHER FORMS OF ACUTE ISCHEMIC HEART DISEASE (4) Elevated WBC count Code(s): D72.829 - ELEVATED WHITE BLOOD CELL COUNT, UNSPECIFIED 5 cellulitis of the legs patients cellulitis of the legs s pretty mild has some tenderness plan continue abx diuresis as per cardio swelling improving rest as per primary team
--- NOTE | 2017-05-17 17:20 | PN ---
Progress Note, Physician - Current Medication List Current Medications: Active Medications Aspirin (Asa -) 81 mg PO DAILY [facility] Last Admin: 05/17/17 09:07 Dose: 81 mg Carvedilol (Coreg -) 12.5 mg PO BID [facility] Clindamycin HCl (Cleocin -) 300 mg PO Q6HPO [facility] Last Admin: 05/17/17 12:27 Dose: 300 mg Furosemide (Lasix Injection -) 40 mg IVPUSH DAILY [facility] Heparin Sodium (Porcine) (Heparin -) 5,000 unit SQ BID [facility] Last Admin: 05/17/17 09:07 Dose: 5,000 unit Lisinopril (Prinivil) 20 mg PO BID [facility] Magnesium Oxide (Mag-Ox -) 400 mg PO DAILY [facility] Last Admin: 05/17/17 06:48 Dose: 400 mg Potassium Chloride (K-Dur -) 40 meq PO BID [facility] Last Admin: 05/17/17 06:48 Dose: 40 meq - Objective Vital Signs: Vital Signs Temperature 98.6 F 05/17/17 14:00 Pulse Rate 82 05/17/17 14:00 Respiratory Rate 20 05/17/17 14:00 Blood Pressure 127/69 05/17/17 14:00 O2 Sat by Pulse Oximetry (%) 95 05/17/17 09:00 Constitutional: Yes: No Distress HENT: Yes: Atraumatic Neck: Yes: Supple Cardiovascular: Yes: Regular Rate and Rhythm Respiratory: Yes: CTA Bilaterally Gastrointestinal: Yes: Normal Bowel Sounds Extremities: Yes: WNL Neurological: Yes: Alert, Oriented Labs: CBC, BMP 05/16/17 05:35 05/16/17 19:25 Problem List - Problems (1) CHF (congestive heart failure) Code(s): I50.9 - HEART FAILURE, UNSPECIFIED Qualifiers: Heart failure type: unspecified Heart failure chronicity: acute on chronic Qualified Code(s): I50.9 - Heart failure, unspecified (2) Hypertensive cardiomyopathy Assessment/Plan: on lisinopril stable Code(s): I11.9 - HYPERTENSIVE HEART DISEASE WITHOUT HEART FAILURE; I43 - CARDIOMYOPATHY IN DISEASES CLASSIFIED ELSEWHERE Qualifiers: Heart failure presence: with heart failure Qualified Code(s): I11.0 - Hypertensive heart disease with heart failure; I43 - Cardiomyopathy in diseases classified elsewhere; I43 - Cardiomyopathy in diseases classified elsewhere; I43 - Cardiomyopathy in diseases classified elsewhere; I43 - Cardiomyopathy in diseases classified elsewhere (3) Subendocardial ischemia Assessment/Plan: will follow troponins Code(s): I24.8 - OTHER FORMS OF ACUTE ISCHEMIC HEART DISEASE (4) Elevated WBC count Assessment/Plan: start emperic abx to cover for infection id consult Code(s): D72.829 - ELEVATED WHITE BLOOD CELL COUNT, UNSPECIFIED
[2017-05-17] MEDS ORDERED: MORPHINE SULFATE 10 MG/1 ML *VIAL IVPUSH ONE (20:30)
[2017-05-17] MEDS: CARVEDILOL 12.5 MG TABLET (FP) PO SCH (22:11)
[2017-05-18] MEDS: CLINDAMYCIN HCL 150 MG CAPSULE (FP) PO SCH ×4 (00:03→19:22)
[2017-05-18 06:34] LABS: ANION GAP 6 (8-16); BLOOD UREA NITROGEN 20 mg/dL (7-18); CALCIUM 8.6 mg/dL (8.5-10.1); CHLORIDE 103 mmol/L (98-107); CO2 35 mmol/L (21-32); CREATININE 1.3 mg/dL (0.7-1.3); GLUCOSE,RANDOM 83 mg/dL (74-106); MAGNESIUM 1.8 mg/dL (1.8-2.4); POTASSIUM 3.3 mmol/L (3.5-5.1); SODIUM 144 mmol/L (136-145)
[2017-05-18] MEDS: ASPIRIN 81 MG CHEWABLE TABLETS PO SCH (09:23)
[2017-05-18] MEDS: FUROSEMIDE 40 MG/4 ML INJECTABLE VIAL IVPUSH SCH (09:23)
[2017-05-18] MEDS: MAGNESIUM OXIDE 400 MG TABLET (FP) PO SCH (09:23)
[2017-05-18] MEDS: POTASSIUM CHLORIDE TABS 20 MEQ TABLET.ER (FP) PO SCH ×2 (09:23→21:25)
[2017-05-18] MEDS: CARVEDILOL 12.5 MG TABLET (FP) PO SCH ×2 (09:23→21:24)
[2017-05-18] MEDS: LISINOPRIL 20 MG TABLET (FP) PO SCH ×2 (09:23→21:25)
[2017-05-18] MEDS: HEPARIN NA (PORCINE) 5,000 UNITS/ML 1ML VIAL SQ SCH ×2 (09:23→21:24)
--- NOTE | 2017-05-18 11:42 | EKG ---
Test Reason : Blood Pressure : / mmHG Vent. Rate : 084 BPM Atrial Rate : 084 BPM P-R Int : 286 ms QRS Dur : 124 ms QT Int : 412 ms P-R-T Axes : 056 -66 060 degrees QTc Int : 486 ms SINUS RHYTHM WITH MARKED SINUS ARRHYTHMIA WITH 1ST DEGREE A-V BLOCK LEFT AXIS DEVIATION CANNOT RULE OUT ANTERIOR INFARCT , AGE UNDETERMINED ABNORMAL ECG WHEN COMPARED WITH ECG OF 17-MAY-2017 20:04, PREMATURE ATRIAL COMPLEXES ARE NO LONGER PRESENT Confirmed by VELVET LEAL MD ([id number]) on 05/18/2017 11:42:20 AM Referred By: Confirmed By:VLEVET LEAL MD
--- NOTE | 2017-05-18 12:35 | PN ---
Progress Note, Physician Chief Complaint: Events noted Not in distress History of Present Illness: Patient was seen and examined in telemetry hold in ICU. Alert and oriented. Chart was reviewed Denies chest pain, SOB or palpitations Complains of headache - Current Medication List Current Medications: Active Medications Aspirin (Asa -) 81 mg PO DAILY [facility] Last Admin: 05/18/17 09:23 Dose: 81 mg Carvedilol (Coreg -) 12.5 mg PO BID [facility] Last Admin: 05/18/17 09:23 Dose: 12.5 mg Clindamycin HCl (Cleocin -) 300 mg PO Q6HPO [facility] Last Admin: 05/18/17 06:15 Dose: 300 mg Furosemide (Lasix Injection -) 40 mg IVPUSH DAILY [facility] Last Admin: 05/18/17 09:23 Dose: 40 mg Heparin Sodium (Porcine) (Heparin -) 5,000 unit SQ BID [facility] Last Admin: 05/18/17 09:23 Dose: 5,000 unit Lisinopril (Prinivil) 20 mg PO BID [facility] Last Admin: 05/18/17 09:23 Dose: 20 mg Magnesium Oxide (Mag-Ox -) 400 mg PO DAILY [facility] Last Admin: 05/18/17 09:23 Dose: 400 mg Potassium Chloride (K-Dur -) 40 meq PO BID [facility] Last Admin: 05/18/17 09:23 Dose: 40 meq Spironolactone (Aldactone -) 25 mg PO DAILY [facility] - Objective Vital Signs: Vital Signs Temperature 97.8 F 05/18/17 05:00 Pulse Rate 78 05/18/17 05:00 Respiratory Rate 18 05/18/17 09:00 Blood Pressure 145/68 05/18/17 05:00 O2 Sat by Pulse Oximetry (%) 95 05/18/17 09:00 Constitutional: Yes: Well Nourished Eyes: Yes: PERRL HENT: Yes: Atraumatic Neck: Yes: Supple Cardiovascular: Yes: Regular Rate and Rhythm, S1, S2. No: Murmur Respiratory: Yes: Diminished Gastrointestinal: Yes: Normal Bowel Sounds, Soft. No: Tenderness Edema: Yes Edema: LLE: 2+, RLE: 2+ Labs: CBC, BMP 05/16/17 05:35 05/18/17 05:40 Problem List - Problems (1) NYHA class 3 acute on chronic systolic heart failure Code(s): I50.23 - ACUTE ON CHRONIC SYSTOLIC (CONGESTIVE) HEART FAILURE (2) Hypertensive cardiomyopathy Code(s): I11.9 - HYPERTENSIVE HEART DISEASE WITHOUT HEART FAILURE; I43 - CARDIOMYOPATHY IN DISEASES CLASSIFIED ELSEWHERE Qualifiers: Heart failure presence: with heart failure Qualified Code(s): I11.0 - Hypertensive heart disease with heart failure; I43 - Cardiomyopathy in diseases classified elsewhere; I43 - Cardiomyopathy in diseases classified elsewhere; I43 - Cardiomyopathy in diseases classified elsewhere; I43 - Cardiomyopathy in diseases classified elsewhere (3) Premature ventricular contraction Code(s): I49.3 - VENTRICULAR PREMATURE DEPOLARIZATION (4) Subendocardial ischemia Code(s): I24.8 - OTHER FORMS OF ACUTE ISCHEMIC HEART DISEASE Assessment/Plan 1. Acute on chronic class II-III NYHA classification systolic left ventricular failure related to systolic left ventricular dysfunction, improving 2. Coronary artery disease angina pectoris with evidence of demand ischemic injury 3. HTN/HCVD 4. PVC 5. Hypokalemia PLAN: 1. Continue IV Lasix with close monitoring of renal function and electrolytes. Spironolactone added today. K supplement 2. Continue ASA 3. Continue Lisinopril and titrate dosage as tolerated 4. Continue Carvedilol and titrate dosage as tolerated 5. Pharmacologic myocardial perfusion imaging study may be done prior to discharge for evaluation of ischemic burden considering the above-noted clinical presentation with congestive heart failure and demand ischemic injury. Troponin has peaked and is coming down (0.12 today) Further plans are to follow Silvestre Zamora MD
[2017-05-18] MEDS ORDERED: PT OWN MED DRAWER 7, Y5N ONE (15:01)
--- NOTE | 2017-05-18 16:52 | PN ---
Progress Note, Physician History of Present Illness: very agitated - Current Medication List Current Medications: Active Medications Aspirin (Asa -) 81 mg PO DAILY [facility] Last Admin: 05/18/17 09:23 Dose: 81 mg Carvedilol (Coreg -) 12.5 mg PO BID [facility] Last Admin: 05/18/17 09:23 Dose: 12.5 mg Clindamycin HCl (Cleocin -) 300 mg PO Q6HPO [facility] Last Admin: 05/18/17 13:19 Dose: 300 mg Furosemide (Lasix Injection -) 40 mg IVPUSH DAILY [facility] Last Admin: 05/18/17 09:23 Dose: 40 mg Heparin Sodium (Porcine) (Heparin -) 5,000 unit SQ BID [facility] Last Admin: 05/18/17 09:23 Dose: 5,000 unit Lisinopril (Prinivil) 20 mg PO BID [facility] Last Admin: 05/18/17 09:23 Dose: 20 mg Magnesium Oxide (Mag-Ox -) 400 mg PO DAILY [facility] Last Admin: 05/18/17 09:23 Dose: 400 mg Potassium Chloride (K-Dur -) 40 meq PO BID [facility] Last Admin: 05/18/17 09:23 Dose: 40 meq Spironolactone (Aldactone -) 25 mg PO DAILY [facility] - Objective Vital Signs: Vital Signs Temperature 98.6 F 05/18/17 13:46 Pulse Rate 76 05/18/17 13:46 Respiratory Rate 18 05/18/17 13:46 Blood Pressure 145/68 05/18/17 05:00 O2 Sat by Pulse Oximetry (%) 95 05/18/17 09:00 Constitutional: Yes: Other (agitated) HENT: Yes: Atraumatic Neck: Yes: Supple Cardiovascular: Yes: Regular Rate and Rhythm Respiratory: Yes: Rhonchi Gastrointestinal: Yes: Normal Bowel Sounds Extremities: Yes: WNL Edema: Yes Edema: LLE: Trace, RLE: Trace Neurological: Yes: Alert, Oriented Labs: CBC, BMP 05/16/17 05:35 05/18/17 05:40 Problem List - Problems (1) CHF (congestive heart failure) Assessment/Plan: on iv lasix doing better Code(s): I50.9 - HEART FAILURE, UNSPECIFIED Qualifiers: Heart failure type: unspecified Heart failure chronicity: acute on chronic Qualified Code(s): I50.9 - Heart failure, unspecified (2) Hypertensive cardiomyopathy Assessment/Plan: on lisinopril stable Code(s): I11.9 - HYPERTENSIVE HEART DISEASE WITHOUT HEART FAILURE; I43 - CARDIOMYOPATHY IN DISEASES CLASSIFIED ELSEWHERE Qualifiers: Heart failure presence: with heart failure Qualified Code(s): I11.0 - Hypertensive heart disease with heart failure; I43 - Cardiomyopathy in diseases classified elsewhere; I43 - Cardiomyopathy in diseases classified elsewhere; I43 - Cardiomyopathy in diseases classified elsewhere; I43 - Cardiomyopathy in diseases classified elsewhere (3) Subendocardial ischemia Assessment/Plan: will follow troponins Code(s): I24.8 - OTHER FORMS OF ACUTE ISCHEMIC HEART DISEASE (4) Elevated WBC count Assessment/Plan: start emperic abx to cover for infection id consult Code(s): D72.829 - ELEVATED WHITE BLOOD CELL COUNT, UNSPECIFIED (5) Agitation Assessment/Plan: will give ativan 0.5 mgx 1 Code(s): R45.1 - RESTLESSNESS AND AGITATION
[2017-05-18] MEDS ORDERED: LORazepam 2 MG/ML SDV VIAL IVPUSH ONE (18:30)
[2017-05-18] MEDS: SPIRONOLACTONE 25 MG TABLET (FP) PO SCH (19:22)
[2017-05-19] MEDS: CLINDAMYCIN HCL 150 MG CAPSULE (FP) PO SCH ×4 (00:42→17:52)
[2017-05-19] MEDS ORDERED: PT OWN MED DRAWER 7, Y5N ONE ×3 (09:11→17:51)
[2017-05-19] MEDS: HEPARIN NA (PORCINE) 5,000 UNITS/ML 1ML VIAL SQ SCH ×2 (09:28→21:55)
[2017-05-19] MEDS: LISINOPRIL 20 MG TABLET (FP) PO SCH ×2 (09:29→21:55)
[2017-05-19] MEDS: FUROSEMIDE 40 MG/4 ML INJECTABLE VIAL IVPUSH SCH (09:29)
[2017-05-19] MEDS: SPIRONOLACTONE 25 MG TABLET (FP) PO SCH (09:29)
[2017-05-19] MEDS: ASPIRIN 81 MG CHEWABLE TABLETS PO SCH (09:29)
[2017-05-19] MEDS: POTASSIUM CHLORIDE TABS 20 MEQ TABLET.ER (FP) PO SCH ×2 (09:29→21:55)
[2017-05-19] MEDS: MAGNESIUM OXIDE 400 MG TABLET (FP) PO SCH (09:29)
[2017-05-19] MEDS: CARVEDILOL 12.5 MG TABLET (FP) PO SCH ×2 (09:29→21:55)
--- NOTE | 2017-05-19 11:46 | PN ---
Progress Note, Physician History of Present Illness: He reports improving dyspnea and bilateral lower extremity edema with diuresis, denies any chest pain. - Current Medication List Current Medications: Active Medications Aspirin (Asa -) 81 mg PO DAILY [facility] Last Admin: 05/19/17 09:29 Dose: 81 mg Carvedilol (Coreg -) 12.5 mg PO BID [facility] Last Admin: 05/19/17 09:29 Dose: 12.5 mg Clindamycin HCl (Cleocin -) 300 mg PO Q6HPO [facility] Last Admin: 05/19/17 06:30 Dose: 300 mg Furosemide (Lasix Injection -) 40 mg IVPUSH DAILY [facility] Last Admin: 05/19/17 09:29 Dose: 40 mg Heparin Sodium (Porcine) (Heparin -) 5,000 unit SQ BID [facility] Last Admin: 05/19/17 09:28 Dose: 5,000 unit Lisinopril (Prinivil) 20 mg PO BID [facility] Last Admin: 05/19/17 09:29 Dose: 20 mg Magnesium Oxide (Mag-Ox -) 400 mg PO DAILY [facility] Last Admin: 05/19/17 09:29 Dose: 400 mg Potassium Chloride (K-Dur -) 40 meq PO BID [facility] Last Admin: 05/19/17 09:29 Dose: 40 meq Spironolactone (Aldactone -) 25 mg PO DAILY [facility] Last Admin: 05/19/17 09:29 Dose: 25 mg - Objective Vital Signs: Vital Signs Temperature 98.2 F 05/19/17 06:00 Pulse Rate 82 05/19/17 10:00 Respiratory Rate 20 05/19/17 10:00 Blood Pressure 156/65 05/19/17 10:00 O2 Sat by Pulse Oximetry (%) 97 05/19/17 09:00 Constitutional: Yes: No Distress, Calm Neck: Yes: Supple Cardiovascular: Yes: Regular Rate and Rhythm Respiratory: Yes: Regular, Diminished Gastrointestinal: Yes: Normal Bowel Sounds, Soft Edema: No Labs: CBC, BMP 05/16/17 05:35 05/18/17 05:40 - ....Imaging EKG: Report Reviewed (Tele: NSR) Problem List - Problems (1) Hypertensive cardiomyopathy Code(s): I11.9 - HYPERTENSIVE HEART DISEASE WITHOUT HEART FAILURE; I43 - CARDIOMYOPATHY IN DISEASES CLASSIFIED ELSEWHERE Qualifiers: Heart failure presence: with heart failure Qualified Code(s): I11.0 - Hypertensive heart disease with heart failure; I43 - Cardiomyopathy in diseases classified elsewhere; I43 - Cardiomyopathy in diseases classified elsewhere; I43 - Cardiomyopathy in diseases classified elsewhere; I43 - Cardiomyopathy in diseases classified elsewhere (2) CHF (congestive heart failure) Code(s): I50.9 - HEART FAILURE, UNSPECIFIED Qualifiers: Heart failure type: unspecified Heart failure chronicity: acute on chronic Qualified Code(s): I50.9 - Heart failure, unspecified (3) Subendocardial ischemia Code(s): I24.8 - OTHER FORMS OF ACUTE ISCHEMIC HEART DISEASE (4) Premature ventricular contraction Code(s): I49.3 - VENTRICULAR PREMATURE DEPOLARIZATION Assessment/Plan 05/15/2017 Echocardiography: Mild to moderately reduced left ventricular systolic function with concentric left ventricular hypertrophy,mild mitral valve regurgitation, mild tricuspid valve regurgitation with RVSP of 34.2 mmH 1. Acute on chronic class II-III NYHA classification systolic left ventricular failure related to systolic left ventricular dysfunction, improving 2. Coronary artery disease angina pectoris with evidence of demand ischemic injury 3. HTN/HCVD 4. PVC 5. Hypokalemia PLAN: 1. Continue IV Lasix with close monitoring of renal function and electrolytes. 2. Continue ASA 81 qd, carvedilol 12.5 bid, lisinopril 20 bid, and increase Aldactone 50 qd 3. Pharmacologic myocardial perfusion imaging study may be done prior to discharge for evaluation of ischemic burden considering the above-noted clinical presentation with congestive heart failure and demand ischemic injury.
[2017-05-19] MEDS ORDERED: SPIRONOLACTONE 25 MG TABLET (FP) PO ONE (12:04)
--- NOTE | 2017-05-19 15:22 | PN ---
Progress Note, Physician History of Present Illness: doing well says leg pain is improving - Current Medication List Current Medications: Active Medications Aspirin (Asa -) 81 mg PO DAILY [facility] Last Admin: 05/19/17 09:29 Dose: 81 mg Carvedilol (Coreg -) 12.5 mg PO BID [facility] Last Admin: 05/19/17 09:29 Dose: 12.5 mg Clindamycin HCl (Cleocin -) 300 mg PO Q6HPO [facility] Last Admin: 05/19/17 12:27 Dose: 300 mg Furosemide (Lasix Injection -) 40 mg IVPUSH DAILY [facility] Last Admin: 05/19/17 09:29 Dose: 40 mg Heparin Sodium (Porcine) (Heparin -) 5,000 unit SQ BID [facility] Last Admin: 05/19/17 09:28 Dose: 5,000 unit Lisinopril (Prinivil) 20 mg PO BID [facility] Last Admin: 05/19/17 09:29 Dose: 20 mg Magnesium Oxide (Mag-Ox -) 400 mg PO DAILY [facility] Last Admin: 05/19/17 09:29 Dose: 400 mg Potassium Chloride (K-Dur -) 40 meq PO BID [facility] Last Admin: 05/19/17 09:29 Dose: 40 meq Spironolactone (Aldactone -) 50 mg PO DAILY [facility] - Objective Vital Signs: Vital Signs Temperature 98.6 F 05/19/17 13:13 Pulse Rate 84 05/19/17 13:13 Respiratory Rate 20 05/19/17 13:13 Blood Pressure 124/79 05/19/17 13:13 O2 Sat by Pulse Oximetry (%) 97 05/19/17 09:00 Constitutional: Yes: No Distress, Calm Cardiovascular: Yes: Regular Rate and Rhythm Respiratory: Yes: Regular, Poor Air Entry Gastrointestinal: Yes: Normal Bowel Sounds, Soft Genitourinary: Yes: [place] Present Extremities: Yes: Erythema (improving,swelling decreasing) Integumentary: Yes: Erythema (improving) Neurological: Yes: Alert, Oriented Psychiatric: Yes: Alert, Other Labs: CBC, BMP 05/16/17 05:35 05/18/17 05:40 Assessment/Plan - Problems (1) CHF (congestive heart failure) Code(s): I50.9 - HEART FAILURE, UNSPECIFIED Qualifiers: Heart failure type: unspecified Heart failure chronicity: acute on chronic Qualified Code(s): I50.9 - Heart failure, unspecified (2) Hypertensive cardiomyopathy Code(s): I11.9 - HYPERTENSIVE HEART DISEASE WITHOUT HEART FAILURE; I43 - CARDIOMYOPATHY IN DISEASES CLASSIFIED ELSEWHERE Qualifiers: Heart failure presence: with heart failure Qualified Code(s): I11.0 - Hypertensive heart disease with heart failure; I43 - Cardiomyopathy in diseases classified elsewhere; I43 - Cardiomyopathy in diseases classified elsewhere; I43 - Cardiomyopathy in diseases classified elsewhere; I43 - Cardiomyopathy in diseases classified elsewhere (3) Subendocardial ischemia Code(s): I24.8 - OTHER FORMS OF ACUTE ISCHEMIC HEART DISEASE (4) Elevated WBC count Code(s): D72.829 - ELEVATED WHITE BLOOD CELL COUNT, UNSPECIFIED 5 cellulitis of the legs patients cellulitis of the legs s pretty mild has some tenderness plan continue abx diuresis as per cardio swelling improving rest as per primary team patient starting to feel better
--- NOTE | 2017-05-19 19:29 | PN ---
Progress Note, Physician History of Present Illness: doing well no issues patient is out of bed legs look much better - Current Medication List Current Medications: Active Medications Aspirin (Asa -) 81 mg PO DAILY [facility] Last Admin: 05/19/17 09:29 Dose: 81 mg Carvedilol (Coreg -) 12.5 mg PO BID [facility] Last Admin: 05/19/17 09:29 Dose: 12.5 mg Clindamycin HCl (Cleocin -) 300 mg PO Q6HPO [facility] Last Admin: 05/19/17 17:52 Dose: 300 mg Furosemide (Lasix Injection -) 40 mg IVPUSH DAILY [facility] Last Admin: 05/19/17 09:29 Dose: 40 mg Heparin Sodium (Porcine) (Heparin -) 5,000 unit SQ BID [facility] Last Admin: 05/19/17 09:28 Dose: 5,000 unit Lisinopril (Prinivil) 20 mg PO BID [facility] Last Admin: 05/19/17 09:29 Dose: 20 mg Magnesium Oxide (Mag-Ox -) 400 mg PO DAILY [facility] Last Admin: 05/19/17 09:29 Dose: 400 mg Potassium Chloride (K-Dur -) 40 meq PO BID [facility] Last Admin: 05/19/17 09:29 Dose: 40 meq Spironolactone (Aldactone -) 50 mg PO DAILY [facility] - Objective Vital Signs: Vital Signs Temperature 98.6 F 05/19/17 13:13 Pulse Rate 84 05/19/17 13:13 Respiratory Rate 20 05/19/17 13:13 Blood Pressure 124/79 05/19/17 13:13 O2 Sat by Pulse Oximetry (%) 97 05/19/17 09:00 Constitutional: Yes: No Distress, Calm Neck: Yes: Supple Cardiovascular: Yes: Regular Rate and Rhythm Respiratory: Yes: Regular, CTA Bilaterally Gastrointestinal: Yes: Normal Bowel Sounds, Soft Musculoskeletal: Yes: WNL Extremities: Yes: Erythema (nearly resolved swelling much better) Integumentary: Yes: Erythema (much better) Neurological: Yes: Alert, Oriented Psychiatric: Yes: Alert, Other Labs: CBC, BMP 05/16/17 05:35 05/18/17 05:40 Assessment/Plan - Problems (1) CHF (congestive heart failure) Code(s): I50.9 - HEART FAILURE, UNSPECIFIED Qualifiers: Heart failure type: unspecified Heart failure chronicity: acute on chronic Qualified Code(s): I50.9 - Heart failure, unspecified (2) Hypertensive cardiomyopathy Code(s): I11.9 - HYPERTENSIVE HEART DISEASE WITHOUT HEART FAILURE; I43 - CARDIOMYOPATHY IN DISEASES CLASSIFIED ELSEWHERE Qualifiers: Heart failure presence: with heart failure Qualified Code(s): I11.0 - Hypertensive heart disease with heart failure; I43 - Cardiomyopathy in diseases classified elsewhere; I43 - Cardiomyopathy in diseases classified elsewhere; I43 - Cardiomyopathy in diseases classified elsewhere; I43 - Cardiomyopathy in diseases classified elsewhere (3) Subendocardial ischemia Code(s): I24.8 - OTHER FORMS OF ACUTE ISCHEMIC HEART DISEASE (4) Elevated WBC count Code(s): D72.829 - ELEVATED WHITE BLOOD CELL COUNT, UNSPECIFIED 5 cellulitis of the legs patients cellulitis of the legs s pretty mild has some tenderness plan continue abx diuresis as per cardio swelling improving rest as per primary team patient starting to feel better will consider deescalating in a day or so
[2017-05-20] MEDS: CLINDAMYCIN HCL 150 MG CAPSULE (FP) PO SCH ×5 (06:08→18:24)
--- NOTE | 2017-05-20 08:08 | PN ---
Progress Note (short form) - Note Progress Note: Chief Complaint: Events noted, notes reviewed, reports dyspnea and bilateral lower extremity edema although severity of which has decreased, denies any chest pain History of Present Illness: Seen and examined on telemetry. Events noted, notes reviewed, reports dyspnea and bilateral lower extremity edema although severity of which has decreased, denies any chest pain Patient keeps on expressing paranoia about living in his [facility] facility (he stated that "they are poisoning the residents") Echocardiography performed 05/15/2017 revealed mild to moderately reduced left ventricular systolic function with concentric left ventricular hypertrophy,mild mitral valve regurgitation, mild tricuspid valve regurgitation with RVSP of 34.2 mmHg Medications: Current Medications Aspirin (Asa -) 81 mg PO DAILY [facility] Last Admin: 05/19/17 09:29 Dose: 81 mg Carvedilol (Coreg -) 12.5 mg PO BID [facility] Last Admin: 05/19/17 21:55 Dose: Not Given Clindamycin HCl (Cleocin -) 300 mg PO Q6HPO [facility] Last Admin: 05/20/17 06:08 Dose: Not Given Furosemide (Lasix Injection -) 40 mg IVPUSH DAILY [facility] Last Admin: 05/19/17 09:29 Dose: 40 mg Heparin Sodium (Porcine) (Heparin -) 5,000 unit SQ BID [facility] Last Admin: 05/19/17 21:55 Dose: Not Given Lisinopril (Prinivil) 20 mg PO BID [facility] Last Admin: 05/19/17 21:55 Dose: Not Given Magnesium Oxide (Mag-Ox -) 400 mg PO DAILY [facility] Last Admin: 05/19/17 09:29 Dose: 400 mg Potassium Chloride (K-Dur -) 40 meq PO BID [facility] Last Admin: 05/19/17 21:55 Dose: Not Given Spironolactone (Aldactone -) 50 mg PO DAILY [facility] Review of Systems Cardiovascular: As noted above Respiratory: denies: denies: Cough or Sputum Production Gastrointestinal: denies: Nausea, Vomiting, Diarrhea, Constipation or Abdominal Discomfort Musculoskeletal: No Symptoms Reported Endocrine: No Symptoms Reported Vital Signs: Last Vital Signs Temp Pulse Resp BP Pulse Ox 98.6 F 108 H 22 134/76 97 05/19/17 13:13 05/19/17 20:55 05/19/17 20:55 05/19/17 20:55 05/19/17 09:00 Intake & Output 05/17/17 05/18/17 05/19/17 05/20/17 23:59 23:59 23:59 23:59 Intake Total 460 730 350 Output Total 2225 500 500 100 Balance -1765 230 -150 -100 Weight 243 lb 224 lb 12.8 oz 240 lb 4.862 oz Constitutional: No Distress, Calm Neck: Supple Negative JVD No Bruit Cardiovascular: S1 S2 Regular Rate and Rhythm Respiratory: Diminished at the Bases Bilaterally Gastrointestinal: Soft Benign Normal Bowel Sounds Ext: 1+ Bilateral Edema Labs: CBC, BMP 05/16/17 05:35 05/18/17 05:40 Assessment/Plan ASSESSMENT: 1. 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 Coronary artery disease angina pectoris with evidence of demand ischemic injury related to the above-noted presentation 3. HTN/HCVD, controlled 4. PVC's 5. Hypokalemia PLAN: 1. Continue Lasix but initiate PO therapy, and continue Aldactone therapy with close monitoring of renal function and electrolytes 2. Continue ASA 3. Continue Lisinopril and titrate dosage as tolerated and as needed 4. Continue Carvedilol and titrate dosage as tolerated and as needed 5. Obtain CBC and BMP 6. Pharmacologic myocardial perfusion imaging study is recommended prior to discharge for evaluation of ischemic burden considering the above-noted clinical presentation with congestive heart failure and demand ischemic injury Laura Alves MD
[2017-05-20] MEDS ORDERED: PT OWN MED DRAWER 7, Y5N ONE (10:04)
[2017-05-20] MEDS: FUROSEMIDE 40 MG TABLET (FP) PO SCH (10:06)
[2017-05-20] MEDS: ASPIRIN 81 MG CHEWABLE TABLETS PO SCH (10:07)
[2017-05-20] MEDS: CARVEDILOL 12.5 MG TABLET (FP) PO SCH ×2 (10:07→22:21)
[2017-05-20] MEDS: LISINOPRIL 20 MG TABLET (FP) PO SCH ×2 (10:07→22:21)
[2017-05-20] MEDS: MAGNESIUM OXIDE 400 MG TABLET (FP) PO SCH (10:08)
[2017-05-20] MEDS: HEPARIN NA (PORCINE) 5,000 UNITS/ML 1ML VIAL SQ SCH ×2 (10:09→22:21)
[2017-05-20 10:24] LABS: BASO % 0.7 % (0-2.0); EOS % 2.8 % (0-4.5); HEMATOCRIT 42.9 % (35.4-49); HEMOGLOBIN 14.3 GM/dL (11.7-16.9); LYMPH % 19.7 % (8-40); MCH 29.7 pg (25.7-33.7); MCHC 33.2 g/dl (32.0-35.9); MEAN CELL VOLUME 89.4 fl (80-96); MEAN PLT VOLUME 9.9 fl (7.5-11.1); MONO % 7.8 % (3.8-10.2); PLATELET COUNT 195 K/MM3 (134-434); RDW 15.7 % (11.9-15.9); WHITE BLOOD COUNT 7.1 K/mm3 (4.0-10.0)
[2017-05-20 10:42] LABS: ANION GAP 11 (8-16); BLOOD UREA NITROGEN 16 mg/dL (7-18); CALCIUM 9.8 mg/dL (8.5-10.1); CHLORIDE 103 mmol/L (98-107); CO2 26 mmol/L (21-32); CREATININE 1.2 mg/dL (0.7-1.3); GLUCOSE,RANDOM 101 mg/dL (74-106); POTASSIUM 4.1 mmol/L (3.5-5.1); SODIUM 140 mmol/L (136-145)
--- NOTE | 2017-05-20 11:06 | PN ---
Progress Note, Physician History of Present Illness: stable no complaints - Current Medication List Current Medications: Active Medications Aspirin (Asa -) 81 mg PO DAILY [facility] Last Admin: 05/20/17 10:07 Dose: 81 mg Carvedilol (Coreg -) 12.5 mg PO BID [facility] Last Admin: 05/20/17 10:07 Dose: 12.5 mg Clindamycin HCl (Cleocin -) 300 mg PO Q6HPO [facility] Last Admin: 05/20/17 06:08 Dose: Not Given Furosemide (Lasix -) 40 mg PO DAILY [facility] Last Admin: 05/20/17 10:06 Dose: 40 mg Heparin Sodium (Porcine) (Heparin -) 5,000 unit SQ BID [facility] Last Admin: 05/20/17 10:09 Dose: 5,000 unit Lisinopril (Prinivil) 20 mg PO BID [facility] Last Admin: 05/20/17 10:07 Dose: 20 mg Magnesium Oxide (Mag-Ox -) 400 mg PO DAILY [facility] Last Admin: 05/20/17 10:08 Dose: 400 mg Spironolactone (Aldactone -) 50 mg PO DAILY [facility] - Objective Vital Signs: Vital Signs Temperature 98.3 F 05/20/17 10:30 Pulse Rate 106 H 05/20/17 10:30 Respiratory Rate 20 05/20/17 10:30 Blood Pressure 163/90 05/20/17 10:30 O2 Sat by Pulse Oximetry (%) 97 05/19/17 09:00 Constitutional: Yes: Calm HENT: Yes: Atraumatic Neck: Yes: Supple Cardiovascular: Yes: Regular Rate and Rhythm Respiratory: Yes: CTA Bilaterally Gastrointestinal: Yes: Normal Bowel Sounds Extremities: Yes: WNL Edema: No Peripheral Pulses WNL: Yes Neurological: Yes: Alert, Oriented Labs: CBC, BMP 05/20/17 09:20 05/20/17 09:20 Problem List - Problems (1) CHF (congestive heart failure) Assessment/Plan: po lasix and aldactone doing better Code(s): I50.9 - HEART FAILURE, UNSPECIFIED Qualifiers: Heart failure type: unspecified Heart failure chronicity: acute on chronic Qualified Code(s): I50.9 - Heart failure, unspecified (2) Hypertensive cardiomyopathy Assessment/Plan: on lisinopril stable Code(s): I11.9 - HYPERTENSIVE HEART DISEASE WITHOUT HEART FAILURE; I43 - CARDIOMYOPATHY IN DISEASES CLASSIFIED ELSEWHERE Qualifiers: Heart failure presence: with heart failure Qualified Code(s): I11.0 - Hypertensive heart disease with heart failure; I43 - Cardiomyopathy in diseases classified elsewhere; I43 - Cardiomyopathy in diseases classified elsewhere; I43 - Cardiomyopathy in diseases classified elsewhere; I43 - Cardiomyopathy in diseases classified elsewhere (3) Subendocardial ischemia Assessment/Plan: will follow troponins..trend down Code(s): I24.8 - OTHER FORMS OF ACUTE ISCHEMIC HEART DISEASE (4) Elevated WBC count Assessment/Plan: wnl Code(s): D72.829 - ELEVATED WHITE BLOOD CELL COUNT, UNSPECIFIED (5) Agitation Assessment/Plan: better today Code(s): R45.1 - RESTLESSNESS AND AGITATION
[2017-05-20] MEDS: SPIRONOLACTONE 25 MG TABLET (FP) PO SCH (12:13)
--- NOTE | 2017-05-20 16:58 | PN ---
Progress Note, Physician History of Present Illness: Pt seen and examined, events noted. Pt currently without fever, chills, or LE pain. Erythema/edema of LE improved. - Current Medication List Current Medications: Active Medications Aspirin (Asa -) 81 mg PO DAILY [facility] Last Admin: 05/20/17 10:07 Dose: 81 mg Carvedilol (Coreg -) 12.5 mg PO BID [facility] Last Admin: 05/20/17 10:07 Dose: 12.5 mg Clindamycin HCl (Cleocin -) 300 mg PO Q6HPO [facility] Last Admin: 05/20/17 12:13 Dose: 300 mg Furosemide (Lasix -) 40 mg PO DAILY [facility] Last Admin: 05/20/17 10:06 Dose: 40 mg Heparin Sodium (Porcine) (Heparin -) 5,000 unit SQ BID [facility] Last Admin: 05/20/17 10:09 Dose: 5,000 unit Lisinopril (Prinivil) 20 mg PO BID [facility] Last Admin: 05/20/17 10:07 Dose: 20 mg Magnesium Oxide (Mag-Ox -) 400 mg PO DAILY [facility] Last Admin: 05/20/17 10:08 Dose: 400 mg Spironolactone (Aldactone -) 50 mg PO DAILY [facility] Last Admin: 05/20/17 12:13 Dose: 50 mg - Objective Vital Signs: Vital Signs Temperature 97.4 F L 05/20/17 15:06 Pulse Rate 91 H 05/20/17 15:06 Respiratory Rate 24 05/20/17 15:06 Blood Pressure 160/94 05/20/17 15:24 O2 Sat by Pulse Oximetry (%) 97 05/20/17 09:00 Constitutional: Yes: No Distress Cardiovascular: Yes: Regular Rate and Rhythm Respiratory: Yes: Regular Gastrointestinal: Yes: Normal Bowel Sounds, Soft Genitourinary: Yes: WNL Extremities: Yes: Other (resolving b/l LE edema/erythema, no tenderness) Edema: No Labs: CBC, BMP 05/20/17 09:20 05/20/17 09:20 Problem List - Problems (1) CHF (congestive heart failure) Code(s): I50.9 - HEART FAILURE, UNSPECIFIED Qualifiers: Heart failure type: unspecified Heart failure chronicity: acute on chronic Qualified Code(s): I50.9 - Heart failure, unspecified (2) Elevated WBC count Code(s): D72.829 - ELEVATED WHITE BLOOD CELL COUNT, UNSPECIFIED (3) Hypertensive cardiomyopathy Code(s): I11.9 - HYPERTENSIVE HEART DISEASE WITHOUT HEART FAILURE; I43 - CARDIOMYOPATHY IN DISEASES CLASSIFIED ELSEWHERE Qualifiers: Heart failure presence: with heart failure Qualified Code(s): I11.0 - Hypertensive heart disease with heart failure; I43 - Cardiomyopathy in diseases classified elsewhere; I43 - Cardiomyopathy in diseases classified elsewhere; I43 - Cardiomyopathy in diseases classified elsewhere; I43 - Cardiomyopathy in diseases classified elsewhere (4) Subendocardial ischemia Code(s): I24.8 - OTHER FORMS OF ACUTE ISCHEMIC HEART DISEASE Assessment/Plan Lower Extremity Cellulitis - improving - cont po antibiotics for now - wbc normal
[2017-05-21 06:43] LABS: BASO % 0.7 % (0-2.0); EOS % 2.3 % (0-4.5); HEMOGLOBIN 14.6 GM/dL (11.7-16.9); LYMPH % 20.8 % (8-40); MCH 30.4 pg (25.7-33.7); MEAN CELL VOLUME 89.4 fl (80-96); MEAN PLT VOLUME 10.5 fl (7.5-11.1); MONO % 9.2 % (3.8-10.2); PLATELET COUNT 214 K/MM3 (134-434); RBC 4.81 M/mm3 (4.00-5.60); RDW 15.5 % (11.9-15.9); WHITE BLOOD COUNT 7.6 K/mm3 (4.0-10.0)
[2017-05-21 07:02] LABS: ANION GAP 12 (8-16); BLOOD UREA NITROGEN 12 mg/dL (7-18); CALCIUM 9.7 mg/dL (8.5-10.1); CHLORIDE 101 mmol/L (98-107); CO2 28 mmol/L (21-32); CREATININE 1.3 mg/dL (0.7-1.3); GLUCOSE,RANDOM 88 mg/dL (74-106); POTASSIUM 4.1 mmol/L (3.5-5.1); SODIUM 141 mmol/L (136-145)
[2017-05-21] MEDS: CLINDAMYCIN HCL 150 MG CAPSULE (FP) PO SCH ×4 (07:44→17:37)
[2017-05-21] MEDS ORDERED: PT OWN MED DRAWER 7, Y5N ONE ×5 (10:03→17:09)
[2017-05-21] MEDS: MAGNESIUM OXIDE 400 MG TABLET (FP) PO SCH (10:12)
[2017-05-21] MEDS: LISINOPRIL 20 MG TABLET (FP) PO SCH ×2 (10:12→21:42)
[2017-05-21] MEDS: FUROSEMIDE 40 MG TABLET (FP) PO SCH (10:13)
[2017-05-21] MEDS: ASPIRIN 81 MG CHEWABLE TABLETS PO SCH (10:13)
[2017-05-21] MEDS: CARVEDILOL 12.5 MG TABLET (FP) PO SCH ×2 (10:13→21:41)
[2017-05-21] MEDS: SPIRONOLACTONE 25 MG TABLET (FP) PO SCH (10:15)
[2017-05-21] MEDS: HEPARIN NA (PORCINE) 5,000 UNITS/ML 1ML VIAL SQ SCH ×2 (10:22→21:41)
--- NOTE | 2017-05-21 11:19 | PN ---
Progress Note (short form) - Note Progress Note: Chief Complaint: Events noted, notes reviewed, reports persistent dyspnea, bilateral lower extremity edema persists although severity of which has decreased, denies any chest pain History of Present Illness: Seen and examined on telemetry. Events noted, notes reviewed, reports persistent dyspnea, bilateral lower extremity edema persists although severity of which has decreased, denies any chest pain Echocardiography performed 05/15/2017 revealed mild to moderately reduced left ventricular systolic function with concentric left ventricular hypertrophy,mild mitral valve regurgitation, mild tricuspid valve regurgitation with RVSP of 34.2 mmHg Medications: Current Medications Aspirin (Asa -) 81 mg PO DAILY [facility] Last Admin: 05/21/17 10:13 Dose: 81 mg Carvedilol (Coreg -) 12.5 mg PO BID [facility] Last Admin: 05/21/17 10:13 Dose: 12.5 mg Clindamycin HCl (Cleocin -) 300 mg PO Q6HPO [facility] Last Admin: 05/21/17 07:44 Dose: Not Given Furosemide (Lasix -) 40 mg PO DAILY [facility] Last Admin: 05/21/17 10:13 Dose: 40 mg Heparin Sodium (Porcine) (Heparin -) 5,000 unit SQ BID [facility] Last Admin: 05/21/17 10:22 Dose: 5,000 unit Lisinopril (Prinivil) 20 mg PO BID [facility] Last Admin: 05/21/17 10:12 Dose: 20 mg Magnesium Oxide (Mag-Ox -) 400 mg PO DAILY [facility] Last Admin: 05/21/17 10:12 Dose: 400 mg Spironolactone (Aldactone -) 50 mg PO DAILY [facility] Last Admin: 05/21/17 10:15 Dose: 50 mg Review of Systems Cardiovascular: As noted above Respiratory: denies: denies: Cough or Sputum Production Gastrointestinal: denies: Nausea, Vomiting, Diarrhea, Constipation or Abdominal Discomfort Musculoskeletal: No Symptoms Reported Endocrine: No Symptoms Reported Vital Signs: Last Vital Signs Temp Pulse Resp BP Pulse Ox 98.0 F 85 18 139/84 98 05/21/17 10:00 05/21/17 10:00 05/21/17 10:00 05/21/17 10:00 05/21/17 09:00 Intake & Output 05/18/17 05/19/17 05/20/17 05/21/17 23:59 23:59 23:59 23:59 Intake Total 730 350 Output Total 500 500 775 400 Balance 230 -150 -775 -400 Weight 224 lb 12.8 oz 240 lb 4.862 oz Constitutional: No Distress, Calm Neck: Supple Negative JVD No Bruit Cardiovascular: S1 S2 Regular Rate and Rhythm Respiratory: Diminished at the Bases Bilaterally Gastrointestinal: Soft Benign Normal Bowel Sounds Ext: 1+ Bilateral Edema Labs: CBC, BMP 05/21/17 05:55 05/21/17 05:55 Hepatic Panel Total Bilirubin 1.0 mg/dL (0.2-1.0) 05/16/17 19:25 AST 25 U/L (15-37) D 05/16/17 19:25 ALT 38 U/L (12-78) D 05/16/17 19:25 Alkaline Phosphatase 65 U/L (45-117) 05/16/17 19:25 Albumin 3.5 g/dl (3.4-5.0) 05/16/17 19:25 Assessment/Plan ASSESSMENT: 1. 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 Coronary artery disease angina pectoris with evidence of demand ischemic injury related to the above-noted presentation 3. HTN/HCVD, controlled 4. PVC's 5. CKD 6. Hypokalemia, resolved PLAN: 1. Continue PO Lasix, and continue Aldactone therapy with close monitoring of renal function and electrolytes 2. Continue ASA 3. Continue Lisinopril and titrate dosage as tolerated and as needed with close monitoring of renal function and electrolytes 4. Continue Carvedilol and titrate dosage as tolerated and as needed 5. As outlined in prior notes pharmacologic myocardial perfusion imaging study is recommended prior to discharge for evaluation of ischemic burden considering the above-noted clinical presentation with congestive heart failure and demand ischemic injury Laura Alves MD
--- NOTE | 2017-05-21 14:44 | PN ---
Progress Note, Physician - Current Medication List Current Medications: Active Medications Aspirin (Asa -) 81 mg PO DAILY [facility] Last Admin: 05/21/17 10:13 Dose: 81 mg Carvedilol (Coreg -) 12.5 mg PO BID [facility] Last Admin: 05/21/17 10:13 Dose: 12.5 mg Clindamycin HCl (Cleocin -) 300 mg PO Q6HPO [facility] Last Admin: 05/21/17 13:17 Dose: 300 mg Furosemide (Lasix -) 40 mg PO DAILY [facility] Last Admin: 05/21/17 10:13 Dose: 40 mg Heparin Sodium (Porcine) (Heparin -) 5,000 unit SQ BID [facility] Last Admin: 05/21/17 10:22 Dose: 5,000 unit Lisinopril (Prinivil) 20 mg PO BID [facility] Last Admin: 05/21/17 10:12 Dose: 20 mg Magnesium Oxide (Mag-Ox -) 400 mg PO DAILY [facility] Last Admin: 05/21/17 10:12 Dose: 400 mg Spironolactone (Aldactone -) 50 mg PO DAILY [facility] Last Admin: 05/21/17 10:15 Dose: 50 mg - Objective Vital Signs: Vital Signs Temperature 98.0 F 05/21/17 10:00 Pulse Rate 85 05/21/17 10:00 Respiratory Rate 18 05/21/17 10:00 Blood Pressure 139/84 05/21/17 10:00 O2 Sat by Pulse Oximetry (%) 98 05/21/17 09:00 Constitutional: Yes: No Distress HENT: Yes: Atraumatic Neck: Yes: Supple Cardiovascular: Yes: Regular Rate and Rhythm Respiratory: Yes: CTA Bilaterally Extremities: Yes: WNL Neurological: Yes: Alert, Oriented Labs: CBC, BMP 05/21/17 05:55 05/21/17 05:55 Problem List - Problems (1) CHF (congestive heart failure) Assessment/Plan: po lasix and aldactone doing better Code(s): I50.9 - HEART FAILURE, UNSPECIFIED Qualifiers: Heart failure type: unspecified Heart failure chronicity: acute on chronic Qualified Code(s): I50.9 - Heart failure, unspecified (2) Hypertensive cardiomyopathy Assessment/Plan: on lisinopril stable Code(s): I11.9 - HYPERTENSIVE HEART DISEASE WITHOUT HEART FAILURE; I43 - CARDIOMYOPATHY IN DISEASES CLASSIFIED ELSEWHERE Qualifiers: Heart failure presence: with heart failure Qualified Code(s): I11.0 - Hypertensive heart disease with heart failure; I43 - Cardiomyopathy in diseases classified elsewhere; I43 - Cardiomyopathy in diseases classified elsewhere; I43 - Cardiomyopathy in diseases classified elsewhere; I43 - Cardiomyopathy in diseases classified elsewhere (3) Subendocardial ischemia Assessment/Plan: will follow troponins..trend down Code(s): I24.8 - OTHER FORMS OF ACUTE ISCHEMIC HEART DISEASE (4) Elevated WBC count Assessment/Plan: wnl Code(s): D72.829 - ELEVATED WHITE BLOOD CELL COUNT, UNSPECIFIED (5) Agitation Code(s): R45.1 - RESTLESSNESS AND AGITATION Assessment/Plan dc [facility] cardiology need to plan the perfusion test if the want to
--- NOTE | 2017-05-21 15:44 | PN ---
Progress Note, Physician History of Present Illness: No new events. Pt without new complaints. - Current Medication List Current Medications: Active Medications Aspirin (Asa -) 81 mg PO DAILY [facility] Last Admin: 05/21/17 10:13 Dose: 81 mg Carvedilol (Coreg -) 12.5 mg PO BID [facility] Last Admin: 05/21/17 10:13 Dose: 12.5 mg Clindamycin HCl (Cleocin -) 300 mg PO Q6HPO [facility] Last Admin: 05/21/17 13:17 Dose: 300 mg Furosemide (Lasix -) 40 mg PO DAILY [facility] Last Admin: 05/21/17 10:13 Dose: 40 mg Heparin Sodium (Porcine) (Heparin -) 5,000 unit SQ BID [facility] Last Admin: 05/21/17 10:22 Dose: 5,000 unit Lisinopril (Prinivil) 20 mg PO BID [facility] Last Admin: 05/21/17 10:12 Dose: 20 mg Magnesium Oxide (Mag-Ox -) 400 mg PO DAILY [facility] Last Admin: 05/21/17 10:12 Dose: 400 mg Spironolactone (Aldactone -) 50 mg PO DAILY [facility] Last Admin: 05/21/17 10:15 Dose: 50 mg - Objective Vital Signs: Vital Signs Temperature 98.0 F 05/21/17 10:00 Pulse Rate 85 05/21/17 10:00 Respiratory Rate 18 05/21/17 10:00 Blood Pressure 139/84 05/21/17 10:00 O2 Sat by Pulse Oximetry (%) 98 05/21/17 09:00 Constitutional: Yes: No Distress Cardiovascular: Yes: Regular Rate and Rhythm Respiratory: Yes: Regular Gastrointestinal: Yes: Normal Bowel Sounds, Soft Genitourinary: Yes: WNL Extremities: Yes: Other (less erythema LE, no tenderness, +onychomycosis) Neurological: Yes: Alert Labs: CBC, BMP 05/21/17 05:55 05/21/17 05:55 Problem List - Problems (1) CHF (congestive heart failure) Code(s): I50.9 - HEART FAILURE, UNSPECIFIED Qualifiers: Heart failure type: unspecified Heart failure chronicity: acute on chronic Qualified Code(s): I50.9 - Heart failure, unspecified (2) Elevated WBC count Code(s): D72.829 - ELEVATED WHITE BLOOD CELL COUNT, UNSPECIFIED (3) Hypertensive cardiomyopathy Code(s): I11.9 - HYPERTENSIVE HEART DISEASE WITHOUT HEART FAILURE; I43 - CARDIOMYOPATHY IN DISEASES CLASSIFIED ELSEWHERE Qualifiers: Heart failure presence: with heart failure Qualified Code(s): I11.0 - Hypertensive heart disease with heart failure; I43 - Cardiomyopathy in diseases classified elsewhere; I43 - Cardiomyopathy in diseases classified elsewhere; I43 - Cardiomyopathy in diseases classified elsewhere; I43 - Cardiomyopathy in diseases classified elsewhere (4) Subendocardial ischemia Code(s): I24.8 - OTHER FORMS OF ACUTE ISCHEMIC HEART DISEASE Assessment/Plan Lower Extremity Cellulitis - improving - continue current management
[2017-05-22] MEDS: CLINDAMYCIN HCL 150 MG CAPSULE (FP) PO SCH ×4 (00:10→18:14)
[2017-05-22] MEDS ORDERED: PT OWN MED DRAWER 7, Y5N ONE ×2 (05:48→06:00)
[2017-05-22] MEDS ORDERED: REGADENOSON 0.4 MG/5 ML PRE-FILLED SYRINGE IVPUSH ONE ×2 (09:00→10:21)
--- NOTE | 2017-05-22 12:05 | PN ---
Progress Note, Physician History of Present Illness: He reports improving dyspnea and bilateral lower extremity edema with diuresis, denies any chest pain. - Current Medication List Current Medications: Active Medications Aspirin (Asa -) 81 mg PO DAILY [facility] Last Admin: 05/21/17 10:13 Dose: 81 mg Carvedilol (Coreg -) 12.5 mg PO BID [facility] Last Admin: 05/21/17 21:41 Dose: Not Given Clindamycin HCl (Cleocin -) 300 mg PO Q6HPO [facility] Last Admin: 05/22/17 05:58 Dose: 300 mg Furosemide (Lasix -) 40 mg PO DAILY [facility] Last Admin: 05/21/17 10:13 Dose: 40 mg Heparin Sodium (Porcine) (Heparin -) 5,000 unit SQ BID [facility] Last Admin: 05/21/17 21:41 Dose: Not Given Lisinopril (Prinivil) 20 mg PO BID [facility] Last Admin: 05/21/17 21:42 Dose: Not Given Magnesium Oxide (Mag-Ox -) 400 mg PO DAILY [facility] Last Admin: 05/21/17 10:12 Dose: 400 mg Spironolactone (Aldactone -) 50 mg PO DAILY [facility] Last Admin: 05/21/17 10:15 Dose: 50 mg - Objective Vital Signs: Vital Signs Temperature 97.3 F L 05/22/17 08:00 Pulse Rate 79 05/22/17 08:00 Respiratory Rate 13 05/22/17 08:00 Blood Pressure 136/95 05/22/17 08:00 O2 Sat by Pulse Oximetry (%) 98 05/21/17 21:00 Constitutional: Yes: No Distress, Calm Neck: Yes: Supple Cardiovascular: Yes: Regular Rate and Rhythm Respiratory: Yes: Regular, Diminished, On Nasal O2 Gastrointestinal: Yes: Normal Bowel Sounds, Soft Edema: No Labs: CBC, BMP 05/21/17 05:55 05/21/17 05:55 Problem List - Problems (1) Hypertensive cardiomyopathy Code(s): I11.9 - HYPERTENSIVE HEART DISEASE WITHOUT HEART FAILURE; I43 - CARDIOMYOPATHY IN DISEASES CLASSIFIED ELSEWHERE Qualifiers: Heart failure presence: with heart failure Qualified Code(s): I11.0 - Hypertensive heart disease with heart failure; I43 - Cardiomyopathy in diseases classified elsewhere; I43 - Cardiomyopathy in diseases classified elsewhere; I43 - Cardiomyopathy in diseases classified elsewhere; I43 - Cardiomyopathy in diseases classified elsewhere (2) CHF (congestive heart failure) Code(s): I50.9 - HEART FAILURE, UNSPECIFIED Qualifiers: Heart failure type: unspecified Heart failure chronicity: acute on chronic Qualified Code(s): I50.9 - Heart failure, unspecified (3) Subendocardial ischemia Code(s): I24.8 - OTHER FORMS OF ACUTE ISCHEMIC HEART DISEASE (4) Premature ventricular contraction Code(s): I49.3 - VENTRICULAR PREMATURE DEPOLARIZATION Assessment/Plan 05/15/2017 Echocardiography: Mild to moderately reduced left ventricular systolic function with concentric left ventricular hypertrophy,mild mitral valve regurgitation, mild tricuspid valve regurgitation with RVSP of 34.2 mmH 1. 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 Coronary artery disease angina pectoris with evidence of demand ischemic injury related to the above-noted presentation 3. HTN/HCVD, controlled 4. PVC's 5. CKD 6. Hypokalemia, resolved PLAN: 1. Continue Lasix 40 qd with close monitoring of renal function and electrolytes. 2. Continue ASA 81 qd, carvedilol 12.5 bid, lisinopril 20 bid, and Aldactone 50 qd 3. F/u pharmacologic myocardial perfusion imaging study results
[2017-05-22] MEDS: CARVEDILOL 12.5 MG TABLET (FP) PO SCH ×2 (13:31→21:14)
[2017-05-22] MEDS: SPIRONOLACTONE 25 MG TABLET (FP) PO SCH (13:31)
[2017-05-22] MEDS: LISINOPRIL 20 MG TABLET (FP) PO SCH ×2 (13:33→21:14)
[2017-05-22] MEDS: FUROSEMIDE 40 MG TABLET (FP) PO SCH (13:33)
[2017-05-22] MEDS: ASPIRIN 81 MG CHEWABLE TABLETS PO SCH (13:33)
[2017-05-22] MEDS: HEPARIN NA (PORCINE) 5,000 UNITS/ML 1ML VIAL SQ SCH (13:33)
[2017-05-22] MEDS: MAGNESIUM OXIDE 400 MG TABLET (FP) PO SCH (13:33)
--- NOTE | 2017-05-22 14:33 | PN ---
Progress Note, Physician History of Present Illness: doing well no issues legs look much better - Current Medication List Current Medications: Active Medications Aspirin (Asa -) 81 mg PO DAILY [facility] Last Admin: 05/22/17 13:33 Dose: 81 mg Carvedilol (Coreg -) 12.5 mg PO BID [facility] Last Admin: 05/22/17 13:31 Dose: 12.5 mg Clindamycin HCl (Cleocin -) 300 mg PO Q6HPO [facility] Last Admin: 05/22/17 13:32 Dose: 300 mg Furosemide (Lasix -) 40 mg PO DAILY [facility] Last Admin: 05/22/17 13:33 Dose: 40 mg Heparin Sodium (Porcine) (Heparin -) 5,000 unit SQ BID [facility] Last Admin: 05/22/17 13:33 Dose: 5,000 unit Lisinopril (Prinivil) 20 mg PO BID [facility] Last Admin: 05/22/17 13:33 Dose: 20 mg Magnesium Oxide (Mag-Ox -) 400 mg PO DAILY [facility] Last Admin: 05/22/17 13:33 Dose: 400 mg Spironolactone (Aldactone -) 50 mg PO DAILY [facility] Last Admin: 05/22/17 13:31 Dose: 50 mg - Objective Vital Signs: Vital Signs Temperature 98.6 F 05/22/17 13:46 Pulse Rate 84 05/22/17 13:46 Respiratory Rate 17 05/22/17 13:46 Blood Pressure 102/70 05/22/17 13:46 O2 Sat by Pulse Oximetry (%) 98 05/21/17 21:00 Constitutional: Yes: No Distress, Calm HENT: Yes: Atraumatic Cardiovascular: Yes: S1, S2 Respiratory: Yes: Regular, CTA Bilaterally Gastrointestinal: Yes: Normal Bowel Sounds, Soft Extremities: Yes: WNL, Erythema (improving) Neurological: Yes: Alert, Oriented Psychiatric: Yes: Alert, Oriented Labs: CBC, BMP 05/21/17 05:55 05/21/17 05:55 Assessment/Plan - Problems (1) CHF (congestive heart failure) Code(s): I50.9 - HEART FAILURE, UNSPECIFIED Qualifiers: Heart failure type: unspecified Heart failure chronicity: acute on chronic Qualified Code(s): I50.9 - Heart failure, unspecified (2) Hypertensive cardiomyopathy Code(s): I11.9 - HYPERTENSIVE HEART DISEASE WITHOUT HEART FAILURE; I43 - CARDIOMYOPATHY IN DISEASES CLASSIFIED ELSEWHERE Qualifiers: Heart failure presence: with heart failure Qualified Code(s): I11.0 - Hypertensive heart disease with heart failure; I43 - Cardiomyopathy in diseases classified elsewhere; I43 - Cardiomyopathy in diseases classified elsewhere; I43 - Cardiomyopathy in diseases classified elsewhere; I43 - Cardiomyopathy in diseases classified elsewhere (3) Subendocardial ischemia Code(s): I24.8 - OTHER FORMS OF ACUTE ISCHEMIC HEART DISEASE (4) Elevated WBC count Code(s): D72.829 - ELEVATED WHITE BLOOD CELL COUNT, UNSPECIFIED 5 cellulitis of the legs patients cellulitis of the legs s pretty mild has some tenderness plan will stop abx rest continue as per cardio primary team patient stable
--- NOTE | 2017-05-22 16:48 | PN ---
Progress Note, Physician History of Present Illness: stable no complaints - Current Medication List Current Medications: Active Medications Aspirin (Asa -) 81 mg PO DAILY [facility] Last Admin: 05/22/17 13:33 Dose: 81 mg Carvedilol (Coreg -) 12.5 mg PO BID [facility] Last Admin: 05/22/17 13:31 Dose: 12.5 mg Clindamycin HCl (Cleocin -) 300 mg PO Q6HPO [facility] Last Admin: 05/22/17 13:32 Dose: 300 mg Furosemide (Lasix -) 40 mg PO DAILY [facility] Last Admin: 05/22/17 13:33 Dose: 40 mg Heparin Sodium (Porcine) (Heparin -) 5,000 unit SQ BID [facility] Last Admin: 05/22/17 13:33 Dose: 5,000 unit Lisinopril (Prinivil) 20 mg PO BID [facility] Last Admin: 05/22/17 13:33 Dose: 20 mg Magnesium Oxide (Mag-Ox -) 400 mg PO DAILY [facility] Last Admin: 05/22/17 13:33 Dose: 400 mg Spironolactone (Aldactone -) 50 mg PO DAILY [facility] Last Admin: 05/22/17 13:31 Dose: 50 mg - Objective Vital Signs: Vital Signs Temperature 98.6 F 05/22/17 14:00 Pulse Rate 84 05/22/17 14:00 Respiratory Rate 17 05/22/17 14:00 Blood Pressure 102/70 05/22/17 14:00 O2 Sat by Pulse Oximetry (%) 98 05/21/17 21:00 Constitutional: Yes: Calm HENT: Yes: Atraumatic Neck: Yes: Supple Cardiovascular: Yes: Regular Rate and Rhythm Respiratory: Yes: CTA Bilaterally Gastrointestinal: Yes: Normal Bowel Sounds Extremities: Yes: WNL Edema: LLE: Trace, RLE: Trace Peripheral Pulses WNL: Yes Neurological: Yes: Alert, Oriented Labs: CBC, BMP 05/21/17 05:55 05/21/17 05:55 Problem List - Problems (1) CHF (congestive heart failure) Assessment/Plan: po lasix and aldactone doing better Code(s): I50.9 - HEART FAILURE, UNSPECIFIED Qualifiers: Heart failure type: unspecified Heart failure chronicity: acute on chronic Qualified Code(s): I50.9 - Heart failure, unspecified (2) Hypertensive cardiomyopathy Assessment/Plan: on lisinopril stable Code(s): I11.9 - HYPERTENSIVE HEART DISEASE WITHOUT HEART FAILURE; I43 - CARDIOMYOPATHY IN DISEASES CLASSIFIED ELSEWHERE Qualifiers: Heart failure presence: with heart failure Qualified Code(s): I11.0 - Hypertensive heart disease with heart failure; I43 - Cardiomyopathy in diseases classified elsewhere; I43 - Cardiomyopathy in diseases classified elsewhere; I43 - Cardiomyopathy in diseases classified elsewhere; I43 - Cardiomyopathy in diseases classified elsewhere (3) Subendocardial ischemia Assessment/Plan: trended down Code(s): I24.8 - OTHER FORMS OF ACUTE ISCHEMIC HEART DISEASE (4) Elevated WBC count Assessment/Plan: wnl Code(s): D72.829 - ELEVATED WHITE BLOOD CELL COUNT, UNSPECIFIED (5) Agitation Assessment/Plan: resolved Code(s): R45.1 - RESTLESSNESS AND AGITATION Assessment/Plan dc in am if cleared by cardiology stress test report reviewed
[2017-05-23] MEDS: CLINDAMYCIN HCL 150 MG CAPSULE (FP) PO SCH ×3 (00:06→06:13)
--- NOTE | 2017-05-23 08:05 | PN ---
Progress Note (short form) - Note Progress Note: Chief Complaint: Events noted, notes reviewed, denies dyspnea or chest pain, bilateral lower extremity edema persists although severity of which has decreased History of Present Illness: Seen and examined on telemetry. Events noted, notes reviewed, denies dyspnea or chest pain, bilateral lower extremity edema persists although severity of which has decreased Patient appears agitated and wants to be D/C home not understanding severity of his medical condition and importance of compliance to therapy administration and medical F/U MPI study revealed systolic LV dysfunction with no evidence of myocardial ischemia Echocardiography performed 05/15/2017 revealed mild to moderately reduced left ventricular systolic function with concentric left ventricular hypertrophy, mild mitral valve regurgitation, mild tricuspid valve regurgitation with RVSP of 34.2 mmHg Medications: Current Medications Aspirin (Asa -) 81 mg PO DAILY [facility] Last Admin: 05/22/17 13:33 Dose: 81 mg Carvedilol (Coreg -) 12.5 mg PO BID [facility] Last Admin: 05/22/17 21:14 Dose: Not Given Clindamycin HCl (Cleocin -) 300 mg PO Q6HPO [facility] Last Admin: 05/23/17 06:13 Dose: Not Given Furosemide (Lasix -) 40 mg PO DAILY [facility] Last Admin: 05/22/17 13:33 Dose: 40 mg Lisinopril (Prinivil) 20 mg PO BID [facility] Last Admin: 05/22/17 21:14 Dose: Not Given Magnesium Oxide (Mag-Ox -) 400 mg PO DAILY [facility] Last Admin: 05/22/17 13:33 Dose: 400 mg Spironolactone (Aldactone -) 50 mg PO DAILY [facility] Last Admin: 05/22/17 13:31 Dose: 50 mg Review of Systems Cardiovascular: As noted above Respiratory: denies: denies: Cough or Sputum Production Gastrointestinal: denies: Nausea, Vomiting, Diarrhea, Constipation or Abdominal Discomfort Musculoskeletal: No Symptoms Reported Endocrine: No Symptoms Reported Vital Signs: Last Vital Signs Temp Pulse Resp BP Pulse Ox 97.7 F 85 18 135/86 99 05/23/17 02:00 05/23/17 02:00 05/23/17 02:00 05/23/17 02:00 05/22/17 21:00 Intake & Output 05/20/17 05/21/17 05/22/17 05/23/17 23:59 23:59 23:59 23:59 Intake Total 640 190 Output Total 174 2635 767 Balance -754 -465 -467 Weight 240 lb 4.862 oz Constitutional: No Distress, Calm Neck: Supple Negative JVD No Bruit Cardiovascular: S1 S2 Regular Rate and Rhythm Respiratory: Diminished at the Bases Bilaterally Gastrointestinal: Soft Benign Normal Bowel Sounds Ext: 1+ Bilateral Edema Labs: CBC, BMP 05/21/17 05:55 05/21/17 05:55 Hepatic Panel Total Bilirubin 1.0 mg/dL (0.2-1.0) 05/16/17 19:25 AST 25 U/L (15-37) D 05/16/17 19:25 ALT 38 U/L (12-78) D 05/16/17 19:25 Alkaline Phosphatase 65 U/L (45-117) 05/16/17 19:25 Albumin 3.5 g/dl (3.4-5.0) 05/16/17 19:25 Assessment/Plan ASSESSMENT: 1. 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 Coronary artery disease angina pectoris with evidence of demand ischemic injury related to the above-noted presentation, no ischemia on MPI study 3. HTN/HCVD, uncontrolled 4. PVC's 5. CKD PLAN: 1. Continue PO Lasix, and continue Aldactone therapy with close monitoring of renal function and electrolytes 2. Continue ASA 3. Continue Lisinopril and titrate dosage as tolerated and as needed with close monitoring of renal function and electrolytes 4. Continue Carvedilol and titrate dosage as tolerated and as needed 5. Reviewed in detail with the patient results of the above noted MPI study and advised that medical therapy to be continued and optimized and additional evaluation is recommended as outpatient including L&RHC coronary angiogrpahy ( advised F/U in the office) 6. D/C planning as per the primary team Laura Alves MD
[2017-05-23] MEDS: FUROSEMIDE 40 MG TABLET (FP) PO SCH (10:02)
[2017-05-23] MEDS: LISINOPRIL 20 MG TABLET (FP) PO SCH (10:02)
[2017-05-23] MEDS: MAGNESIUM OXIDE 400 MG TABLET (FP) PO SCH (10:02)
[2017-05-23] MEDS: ASPIRIN 81 MG CHEWABLE TABLETS PO SCH (10:02)
[2017-05-23] MEDS: CARVEDILOL 12.5 MG TABLET (FP) PO SCH (10:02)
[2017-05-23] MEDS: SPIRONOLACTONE 25 MG TABLET (FP) PO SCH (10:08)
[2017-05-23 10:11] VITALS: BP 146/72; PULSE 86; TEMP 98.4
--- NOTE | 2017-05-24 10:00 | DS ---
Physical Examination Vital Signs: Vital Signs Temperature 98.4 F 05/23/17 10:00 Pulse Rate 86 05/23/17 10:00 Respiratory Rate 18 05/23/17 10:00 Blood Pressure 146/72 05/23/17 10:00 O2 Sat by Pulse Oximetry (%) 99 05/23/17 09:00 Labs: CBC, BMP 05/21/17 05:55 05/21/17 05:55 Discharge Summary Reason For Visit: CHF Condition: Good - Instructions Disposition: HOME - Home Medications Comprehensive Discharge Medication List: Ambulatory Orders Lisinopril [Prinivil -] 40 mg PO DAILY 05/15/17 Paroxetine HCl [Paxil] 20 mg PO DAILY 05/15/17 Aspirin [ASA -] 81 mg PO DAILY #30 tab.chew 05/22/17 Carvedilol [Coreg -] 12.5 mg PO BID #60 tablet 05/22/17 Furosemide [Lasix -] 40 mg PO DAILY #30 tablet 05/22/17 Lisinopril [Prinivil] 20 mg PO BID #60 tablet 05/22/17 Spironolactone [Aldactone -] 50 mg PO DAILY #30 tablet 05/22/17 dc
== END 2017-05-23 12:42 | disposition home or self-care (01) | DRG 291 ==
LOC: JER 10:05 → JERBED 12:14 → J2W 17:25
PROVIDERS: ADMIT Internal Medicine; ATTEND Internal Medicine
DX: I13.0 Hypertensive heart and chronic kidney disease with heart failure and stage 1 through stage 4 chronic kidney disease, or unspecified chronic kidney disease (principal); I50.23 Acute on chronic systolic (congestive) heart failure; I24.8 Other forms of acute ischemic heart disease; N17.9 Acute kidney failure, unspecified; E78.00 Pure hypercholesterolemia, unspecified; I43 Cardiomyopathy in diseases classified elsewhere; I25.110 Atherosclerotic heart disease of native coronary artery with unstable angina pectoris; F03.90 Unspecified dementia, unspecified severity, without behavioral disturbance, psychotic disturbance, mood disturbance, and anxiety; I49.3 Ventricular premature depolarization; D72.829 Elevated white blood cell count, unspecified; E87.6 Hypokalemia; R45.1 Restlessness and agitation; N18.9 Chronic kidney disease, unspecified; F22 Delusional disorders
CPT/HCPCS: 36415; 71046-TC-FY; 78452-TC; 80048; 80053; 80061; 81003; 81015; 82550; 83036; 83721; 83735; 83880; 84443; 84484; 85025; 93005; 93010; 93017; 93306-TC; 97116-GP; 99284-25; A9502; J1644; J2785